=== PATIENT | female | born 1970 | race Caucasian/White ===

== ENCOUNTER → 2016-04-16 | Day surgery (SDC) | payer MEDICAID ==
[2016-04-15 10:43] VITALS: BMI 44.9
[~2016-04-16] MED LIST: LACTATED RINGERS 1,000 ML IV SCH; LIDOCAINE 1% 20 ML VIAL (10MG/ML) FOR IV START INTRADERMA PRN; LIDOCAINE 1% INJ 10MG/ML (20 ML MDV) ONE; PROPOFOL 10 MG/ML 20 ML VIAL IV ONE
[2016-04-16 09:41] VITALS: TEMP 98.1
[2016-04-16 10:02] LABS: Glucose,Whole Blood 103 mg/dL (75-99)
--- NOTE | 2016-04-16 10:08 | P.GSHP ---
History of Present Illness H&P Date: 04/16/16 Chief Complaint: GERD Patient here today for upper endoscopy. She is being worked up for sleeve gastrectomy. Upper endoscopy is advised. Patient has chronic reflux. She takes omeprazole twice a day. Past Medical History Past Medical History: Asthma, Diabetes Mellitus, Eye Disorder, GERD/Reflux, Hypertension, Thyroid Disorder Additional Past Medical History / Comment(s): glaucoma History of Any Multi-Drug Resistant Organisms: None Reported Past Surgical History: Adenoidectomy, Section, Tonsillectomy, Tubal Ligation Additional Past Surgical History / Comment(s): arthroscopic left shoulder surgery Past Anesthesia/Blood Transfusion Reactions: Postoperative Nausea & Vomiting ( PONV) Past Psychological History: Depression Smoking Status: Former smoker Past Alcohol Use History: Rare Additional Past Alcohol Use History / Comment(s): quit smoking 11 yrs ago (2004) Past Drug Use History: None Reported - Past Family History Mother Additional Family Medical History / Comment(s): Graves disease, genetic blood vessel abnormality (HHT), pt tested and is negative Father Additional Family Medical History / Comment(s): from bladder cancer in 2013, he developed arterial blood clots, hernia issues, gluccoma, Medications and Allergies Home Medications Medication Instructions Recorded Confirmed Type Albuterol Sulfate [Proair Hfa] 1 - 2 puff INHALATION Q6HR PRN 09/26/15 04/15/16 History Bisacodyl [Dulcolax] 5 mg PO DAILY PRN 09/26/15 04/15/16 History Ciclesonide [Alvesco] 6.1 gm IH BID 09/26/15 04/15/16 History Citalopram Hydrobromide [CeleXA] 20 mg PO HS 09/26/15 04/15/16 History Levothyroxine Sodium [Synthroid] 175 mcg PO HS 09/26/15 04/15/16 History Losartan [Cozaar] 50 mg PO HS 09/26/15 04/15/16 History Melatonin 5 mg PO HS PRN 09/26/15 04/15/16 History Multivitamin with Iron 1 each PO DAILY 09/26/15 04/15/16 History [Multivitamins with Iron] diphenhydrAMINE [Benadryl] 25 mg PO HS PRN 09/26/15 04/15/16 History metFORMIN HCL [Glucophage] 1,000 mg PO BID 09/26/15 04/15/16 History Latanoprost Ophth [Xalatan 0.005%] 1 drops BOTH EYES HS 04/15/16 04/15/16 History Omeprazole [PriLOSEC] 20 mg PO AC-BID 04/15/16 04/15/16 History Allergies Allergy/AdvReac Type Severity Reaction Status Date / Time No Known Allergies Allergy Verified 04/16/16 09:41 Surgical - Exam Vital Signs Temp Pulse Resp BP Pulse Ox 98.1 F 84 16 137/80 98 04/16/16 09:37 04/16/16 09:37 04/16/16 09:37 04/16/16 09:37 04/16/16 09:37 Physical exam: General: Well-developed, well-nourished HEENT: Normocephalic, sclerae nonicteric Abdomen: Nontender, nondistended Extremities: No edema Neuro: Alert and oriented Results - Labs Abnormal Lab Results - Last 24 Hours (Table) 04/16/16 Range/Units 09:59 POC Glucose (mg/dL) 103 H (75-99) mg/dL Assessment and Plan (1) GERD (gastroesophageal reflux disease) Narrative/Plan: Will Proceed with upper endoscopy at this time. Status: Acute
--- NOTE | 2016-04-16 10:23 | P.PCN ---
Date of Procedure: 04/16/16 Procedure(s) Performed: Preoperative Dx: GERD Postoperative Dx: Mild gastritis Procedure: EGD with Bx Anesthesia: Sedation Endoscopist: Dr. Barrera Specimens: Antrum Endoscopic Procedure: The patient was on the endoscopy table in the left decubitus position. The Olympus gastroscope was inserted into the oropharynx and passed under direct visualization to the region of the third portion of the duodenum. From that point the scope was slowly withdrawn inspecting all surfaces carefully. There were no neoplastic inflammatory or polypoid lesions throughout the duodenum. The pylorus was widely patent. The stomach was carefully inspected. There was mild gastritis present. A biopsy of the antrum took place to rule out H. pylori. Retroflexion revealed a normal hiatus. The esophagus was then carefully examined. There were no neoplastic inflammatory or polypoid lesions throughout the visualized esophagus. The patient was then taken to the recovery room in stable condition per anesthesia guidelines. Recommendations: Await biopsy results. Continue antiacid therapy.
[2016-04-16 10:50] VITALS: RESP 18
[2016-04-16 11:01] VITALS: BP 127/85; PULSE 80
== END ==
LOC: ORWHC2ENDO 09:08
PROVIDERS: ATTEND Surgery
DX: K21.9 Gastro-esophageal reflux disease without esophagitis (principal); K29.50 Unspecified chronic gastritis without bleeding; J45.909 Unspecified asthma, uncomplicated; E11.9 Type 2 diabetes mellitus without complications; Z79.84 Long term (current) use of oral hypoglycemic drugs; H40.9 Unspecified glaucoma; I10 Essential (primary) hypertension; E07.9 Disorder of thyroid, unspecified; Z87.891 Personal history of nicotine dependence; Z79.899 Other long term (current) drug therapy
CPT/HCPCS: 88305; 88342; 43239; J2001; J2704

== ENCOUNTER → 2016-04-21 | Outpatient (CLI) | payer MEDICAID ==
[2016-04-21 12:55] VITALS: BMI 46.8
== END | disposition home or self-care (01) ==
LOC: BARWHC3 08:57
PROVIDERS: ATTEND Surgery
DX: Z71.3 Dietary counseling and surveillance (principal); E66.01 Morbid (severe) obesity due to excess calories; Z68.42 Body mass index [BMI] 45.0-49.9, adult
CPT/HCPCS: 97804

== ENCOUNTER → 2016-05-13 | Outpatient (CLI) | payer MEDICAID ==
[2016-05-13 14:56] VITALS: BP 136/64; PULSE 82; RESP 18; TEMP 99.1; BMI 46.7
--- NOTE | 2016-05-13 15:26 | P.BASOAP ---
Subjective Principal diagnosis: Morbid obesity Patient underwent her recent upper endoscopy preoperatively. She had mild gastritis at that time. She continues to take her antiacids twice daily. She is almost completed with her supervised weight loss program. Otherwise no new complaints. Objective - Vital Signs Vital signs: Vital Signs Temp 99.1 F 05/13/16 14:52 Pulse 82 05/13/16 14:52 Resp 18 05/13/16 14:52 BP 136/64 05/13/16 14:52 Pulse Ox Intake & Output 05/12/16 05/13/16 05/13/16 18:59 06:59 18:59 Weight 125.6 kg - Exam Abdomen: Soft, nontender, nondistended Assessment/Plan (1) GERD (gastroesophageal reflux disease) Narrative/Plan: Will continue to work toward scheduling of the patient's upcoming sleeve gastrectomy. The complication notification form was reviewed with her in detail. All questions were answered. Plan: Date: 05/13/16 Initial Weight: 124.33 kg Initial BMI: 46.3 Current Weight: 125.6 kg Current BMI: 46.7 Type of Surgery: Total Volume in Band: Previous Volume: Volume Removed: Volume Added: Band Size:
== END | disposition home or self-care (01) ==
LOC: BARWHC3 13:51
PROVIDERS: ATTEND Surgery
DX: Z01.818 Encounter for other preprocedural examination (principal)
CPT/HCPCS: 99211

== ENCOUNTER → 2016-09-09 | Outpatient (CLI) | payer MEDICAID ==
--- NOTE | 2016-09-09 12:13 | P.BASOAP ---
Subjective Principal diagnosis: Morbid obesity Patient is seen today preoperatively for upcoming sleeve gastrectomy. She was scheduled initially in April but was denied and required 3 additional months of supervised weight loss. She has had no significant health changes since then. She has a history of iron deficiency. 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 Her last colonoscopy was 4 years ago. Her upper endoscopy was performed in April. She underwent an iron infusion this last week. Objective - Exam Physical exam: General: Well-developed, well-nourished HEENT: Normocephalic, sclerae nonicteric Abdomen: Nontender, nondistended Extremities: No edema Neuro: Alert and oriented Assessment/Plan (1) Morbid obesity Narrative/Plan: Will proceed with upcoming sleeve gastrectomy on 10/01. The risks and benefits were again reviewed in detail. The patient already reviewed the extensive preoperative consent with me at the time of her last visit and no additional questions were raised. Plan: Date: 09/09/16 Initial Weight: 124.33 kg Initial BMI: Current Weight: Current BMI: Type of Surgery: Vertical Sleeve Gastrectomy Total Volume in Band: Previous Volume: Volume Removed: Volume Added: Band Size:
== END | disposition home or self-care (01) ==
LOC: BARWHC3 11:17
PROVIDERS: ATTEND Surgery
DX: E66.01 Morbid (severe) obesity due to excess calories (principal)
CPT/HCPCS: 99211

== ENCOUNTER → 2016-09-24 | Outpatient (CLI) | payer MEDICAID ==
[2016-09-24 12:36] LABS: EKG EKG PERFORMED
[2016-09-24 13:17] LABS: ALT 93 U/L (9-52); AST 48 U/L (14-36); Alkaline Phosphatase 56 U/L (38-126); Anion Gap 14 mmol/L; Blood Urea Nitrogen 15 mg/dL (7-17); Calcium 10.2 mg/dL (8.4-10.2); Carbon Dioxide 26 mmol/L (22-30); Chloride 102 mmol/L (98-107); Glucose 90 mg/dL (74-99); Non-African American GFR(MDRD) >60 (>60 ml/min/1.73 sqM); Sodium 142 mmol/L (137-145); Total Bilirubin 0.6 mg/dL (0.2-1.3); Total Protein 8.1 g/dL (6.3-8.2)
[2016-09-24 13:35] LABS: Basophils % (A) 0 %; CH 29.2; CHCM 34.2; Eosinophils # (A) 0.2 k/uL (0-0.7); Eosinophils % (A) 2 %; HDW 2.42; HGB 13.9 gm/dL (11.4-16.0); Luc # (Auto) 0.14; Luc % (Auto) 1; Lymphocytes # (A) 2.3 k/uL (1.0-4.8); Lymphocytes % (A) 22 %; MCH 29.7 pg (25.0-35.0); MCHC 34.7 g/dL (31.0-37.0); MCV 85.5 fL (80.0-100.0); Mean Platelet Volume 7.5; Monocytes # (A) 0.5 k/uL (0-1.0); Monocytes % (A) 5 %; Neutrophils # (A) 7.2 k/uL (1.3-7.7); Neutrophils % (A) 70 %; RBC 4.67 m/uL (3.80-5.40); RDW 14.2 % (11.5-15.5); WBC 10.3 k/uL (3.8-10.6); WBC (Perox) 9.76
--- NOTE | 2016-09-24 14:03 | XR ---
EXAMINATION TYPE: XR Hip Complete LT DATE OF EXAM: 09/24/2016 COMPARISON: NONE HISTORY: 45 year-old female left hip pain for 6 months TECHNIQUE: 2 views FINDINGS: There is mild marginal spurring at the left hip. No acute fracture, subluxation, or dislocation. IMPRESSION: Minimal early spurring about the left hip. No acute osseous abnormality seen.
== END | disposition home or self-care (01) ==
LOC: LABPAT 12:27
PROVIDERS: ATTEND Surgery
DX: Z01.818 Encounter for other preprocedural examination (principal); M76.9 Unspecified enthesopathy, lower limb, excluding foot; Z01.810 Encounter for preprocedural cardiovascular examination
CPT/HCPCS: 73502; 80053; 85025; 93005

== ENCOUNTER 2016-10-01 08:17 | Inpatient (IN) | payer MEDICAID ==
--- NOTE | 2016-09-26 13:23 | P.GSHP ---
History of Present Illness H&P Date: 10/01/16 Chief Complaint: Morbid obesity Patient was seen last September for evaluation for sleeve gastrectomy. Patient has tried a variety of different weight loss modalities over the years without sustained weight loss. She is not interested in gastric bypass or laparoscopic banding. She suffers from asthma, GERD, and gestational diabetes. Denies any history of DVT or dysphagia. She also describes chronic fatigue. The patient works as a chemotherapy nurse. Upper endoscopy performed in April shows gastritis. - Review of Systems Comment: The patient denies any acute changes in vision or hearing, no dysphagia or odynophagia, no chest pain or shortness of breath, no dysuria or hematuria, no headache, no runny nose, no rectal bleeding or melena, no unexplained weight loss Past Medical History Past Medical History: Asthma, Diabetes Mellitus, Eye Disorder, GERD/Reflux, Hypertension, Osteoarthritis (OA), Thyroid Disorder Additional Past Medical History / Comment(s): IRON DEF ANEMIA, IRON INFUSION LAST 09/08/16. Glaucoma. History of Any Multi-Drug Resistant Organisms: None Reported Past Surgical History: Adenoidectomy, Section, Tonsillectomy, Tubal Ligation Additional Past Surgical History / Comment(s): Arthroscopic left shoulder surgery. EGD. Past Anesthesia/Blood Transfusion Reactions: Family History of Problems w/ Anesthesia, Postoperative Nausea & Vomiting (PONV) Additional Past Anesthesia/Blood Transfusion Reaction / Comment(s): MOTHER HAD PONV. Smoking Status: Former smoker - Past Family History Mother Family Medical History: Cancer Additional Family Medical History / Comment(s): Graves disease, genetic blood vessel abnormality (HHT), pt tested and is negative Father Family Medical History: Cancer, Pulmonary Embolus Additional Family Medical History / Comment(s): from bladder cancer in 2013, he developed arterial blood clots, hernia issues, gluccoma, Medications and Allergies Home Medications Medication Instructions Recorded Confirmed Type Albuterol Sulfate [Proair Hfa] 1 - 2 puff INHALATION Q6HR PRN 09/26/15 09/26/16 History Bisacodyl [Dulcolax] 5 mg PO DAILY PRN 09/26/15 09/26/16 History Ciclesonide [Alvesco] 1 puff IH BID 09/26/15 09/26/16 History Citalopram Hydrobromide [CeleXA] 20 mg PO HS 09/26/15 09/26/16 History Levothyroxine Sodium [Synthroid] 175 mcg PO HS 09/26/15 09/26/16 History Losartan [Cozaar] 50 mg PO HS 09/26/15 09/26/16 History Melatonin 5 mg PO HS PRN 09/26/15 09/26/16 History Multivitamin with Iron 1 each PO DAILY 09/26/15 09/26/16 History [Multivitamins with Iron] diphenhydrAMINE [Benadryl] 25 mg PO HS PRN 09/26/15 09/26/16 History metFORMIN HCL [Glucophage] 1,000 mg PO BID 09/26/15 09/26/16 History Latanoprost Ophth [Xalatan 0.005%] 1 drops BOTH EYES HS 04/15/16 09/26/16 History Omeprazole [PriLOSEC] 20 mg PO AC-BID 04/15/16 09/26/16 History Allergies Allergy/AdvReac Type Severity Reaction Status Date / Time No Known Allergies Allergy Verified 09/26/16 10:55 Surgical - Exam Physical exam: General: Well-developed, well-nourished HEENT: Normocephalic, sclerae nonicteric Abdomen: Nontender, nondistended Extremities: No edema Neuro: Alert and oriented Assessment and Plan (1) Morbid obesity Narrative/Plan: Will proceed with elective sleeve gastrectomy this Thursday. Risks of bleeding , infection, stenosis, leak, abscess, fistula formation, poor weight loss, chronic reflux, AK, PE, DVT, and were discussed. She understands and wishes to proceed. Status: Acute
[~2016-10-01 08:17] MED LIST changes: +DEXAMETHASONE SOD PHOSPHATE 10 MG/ML 1 ML VIAL IV ONE; +ENOXAPARIN 40 MG/0.4 ML SYRINGE SQ ONE; -LACTATED RINGERS 1,000 ML IV SCH; -LIDOCAINE 1% INJ 10MG/ML (20 ML MDV) ONE; +METHYLENE BLUE 30 MG in DEXTROSE 5% IN WATER 500 ML IRRIGATION ONE; -PROPOFOL 10 MG/ML 20 ML VIAL IV ONE; +SCOPOLAMINE 1.5MG/72HR PATCH TRANSDERM ONE; +ceFAZolin 2 GM in SODIUM CHLORIDE 0.9% 100 ML IVPB ONE
[2016-10-01] MEDS: LACTATED RINGERS 1,000 ML IV SCH (09:15)
[2016-10-01] MEDS: ONDANSETRON 4 MG/2 ML VIAL IVP ONE ×2 (09:23→12:05)
[2016-10-01 09:27] LABS: Glucose,Whole Blood 89 mg/dL (75-99)
[2016-10-01] MEDS ORDERED: NEOSTIGMINE 1 MG/ML 10 ML VIAL ONE (10:17)
[2016-10-01] MEDS ORDERED: KETOROLAC 30 MG/ML 1 ML VIAL ONE (10:17)
[2016-10-01] MEDS ORDERED: LIDOCAINE 1% INJ 10MG/ML (20 ML MDV) ONE (10:17)
[2016-10-01] MEDS ORDERED: GLYCOPYRROLATE 0.2 MG/ML 2 ML VIAL ONE (10:17)
[2016-10-01] MEDS ORDERED: SUCCINYLCHOLINE CHLORIDE 100 MG/5 ML SYR IV ONE (10:17)
[2016-10-01] MEDS ORDERED: PROPOFOL 10 MG/ML 20 ML VIAL IV ONE (10:17)
[2016-10-01] MEDS ORDERED: MIDAZOLAM 2 MG/2 ML VIAL ONE (10:17)
[2016-10-01] MEDS ORDERED: ROCURONIUM BROMIDE 10 MG/ML 10 ML VIAL IV ONE (10:17)
[2016-10-01] MEDS ORDERED: fentaNYL (PF) 50 MCG/ML 2 ML AMP ONE (10:17)
[2016-10-01] MEDS ORDERED: ESMOLOL 100 MG/10 ML VIAL ONE (10:17)
[2016-10-01] MEDS ORDERED: BUPIVACAIN-EPI 0.25%-1:200,000 30 ML VIAL SQ ONE ×2 (10:41)
[2016-10-01] MEDS ORDERED: LACTATED RINGERS 1,000 ML IV ONE (11:15)
[2016-10-01] MEDS ORDERED: ONDANSETRON 4 MG/2 ML VIAL IVP PRN (11:45)
[2016-10-01] MEDS ORDERED: NALOXONE 0.4 MG/ML 1 ML VIAL IV PRN (11:45)
[2016-10-01] MEDS ORDERED: SIMETHICONE 40 MG/0.6 ML DROPS 2,000 MG/30 ML BOTTLE PO PRN (11:45)
[2016-10-01] MEDS ORDERED: diphenhydrAMINE 50 MG/ML 1 ML VIAL IVP PRN (11:45)
--- NOTE | 2016-10-01 11:50 | P.OP ---
Date of Procedure: 10/01/16 Preoperative Diagnosis: Postoperative Diagnosis: Procedure(s) Performed: PREOPERATIVE DIAGNOSIS: Morbid obesity, asthma, GERD POSTOPERATIVE DIAGNOSIS: Same PROCEDURE: Laparoscopic sleeve gastrectomy SURGEON: Bruce EBL: Minimal ANESTHESIA: General COMPLICATIONS: None OPERATIVE PROCEDURE: Patient was placed in the operating table in the supine position. She was placed under general anesthesia at that time. The abdomen was prepped and draped in sterile fashion after the patient was placed in lithotomy. A 5 mm optical trocar was used to enter the abdominal cavity in the left upper quadrant. Insufflation took place to 15 millimeters mercury. An additional right subxiphoid 5 mm trocar was then placed under direct visualization and then removed. 2 additional 5 mm trochars were placed in the right upper quadrant and left upper quadrant under direct visualization and a 15 mm trocar in the supraumbilical location. The liver was retracted using a medium Tania liver retractor through the right subxiphoid trocar site. The hiatus was inspected. The patient had no visible hiatal hernia At that point I moved to the mid aspect of the greater curvature the stomach. The short gastric vasculature was divided using a LigaSure device proximally. I then switched and divided the short gastrics distally to a 3-4 cm from the pylorus. The dissection took place up to the left diaphragmatic crura at that point. The posterior short gastrics were likewise divided using the LigaSure device. Once the stomach was fully mobilized the blunt tipped 40-Australian bougie dilator was advanced into the stomach and advanced all the way to the prepyloric location. A black echelon 60 stapler was utilized and fired tangentially across the antrum taking care to avoid narrowing at the incisura angularis. Subsequent firings of the stapler took place. A total of 4 green echelon 60 staplers with seam guard took place proximally staying on the outer edge of our dilator. Once we reached the most proximal portion of the stomach a single firing of the gold echelon 60 stapler without seen guard took place. The oral gastric tube was reinserted. The stomach was insufflated with approximately 100 mL of methylene blue. No evidence of leak or obstruction was seen. The distal aspect of the sleeve was then reapproximated to the gastrosplenic and gastrocolic ligament using a short running 2-0 strata fix suture. This was done to prevent kinking or twisting of the sleeve. Tisseel fibrin glue was then used along the entire staple line. The stomach remnant was removed from the 15 mm trocar site without difficulty. The fascia at the 15 more site was closed using interrupted 0 Vicryl sutures with the laparoscopic suture passer and Morales Latosha technique. The insufflation was evacuated. The skin at all 5 incisions were closed using 4-0 Monocryl sutures. Steri-Strips and sterile dressings were then applied. DISPOSITION: Stable to recovery room Implants: Indications for Procedure: Operative Findings: Description of Procedure:
[2016-10-01 12:19] LABS: Glucose,Whole Blood 123 mg/dL (75-99)
[2016-10-01] MEDS ORDERED: PROMETHAZINE INJ 25 MG/ML 1 ML VIAL IVPB ONE (12:22)
[2016-10-01] MEDS: HYDROmorphone 1 MG/ML 1 ML SYRINGE IVP PRN ×5 (12:31→20:51)
[2016-10-01] MEDS: ALBUTEROL NEBULIZED 2.5 MG/3 ML INHALATION SCH ×4 (14:59→19:51)
[2016-10-01] MEDS: 0.9% NACL WITH KCL 20 MEQ/L 1,000 ML IV SCH ×2 (15:04→22:03)
[2016-10-01 15:12] VITALS: BMI 41.0
[2016-10-01 15:50] LABS: Glucose,Whole Blood 139 mg/dL (75-99)
[2016-10-01] MEDS ORDERED: ENALAPRILAT 1.25 MG/ML 1 ML VIAL IVP PRN (15:53)
--- NOTE | 2016-10-01 15:56 | P.CONS ---
History of Present Illness - Reason for Consult Consult date: 10/01/16 Medical management Requesting physician: Miah Barrera - Chief Complaint Status post sleeve gastrectomy. - History of Present Illness This is a 45-year-old female one of Dr. Hernandez with a previous medical history significant for hypertension and hypertensive cardiovascular disease, depression, diabetes mellitus type 2 with a prior history of gestational diabetes, history of morbid obesity who tried several diet and exercise regimen without any results she tried metformin 1000 mg orally twice every day without any results she ended up seeing Dr. Barrera she underwent vertical sleeve gastrectomy that was done today and we were asked to see the patient for medical management. Patient sitting up at the edge of the bed she complains of pressure in her chest because of the gas, she denies any nausea, vomiting, she had a bit of headache, she is a bit uncomfortable. Review of Systems Constitutional: Denies anorexia, Denies chronic headaches, Denies chronic pain, Denies lethargy, Denies weakness, Denies weight gain, Denies weight loss Eyes: denies blurred vision, denies bulging eye, denies decreased vision, denies diplopia Ears: deny: decreased hearing Ears, nose, mouth and throat: Denies dysphagia, Denies swelling in throat, Denies sore throat Cardiovascular: Reports chest pain, Reports high blood pressure, Denies dyspnea on exertion, Denies palpitations, Denies phlebitis, Denies rapid heart beat, Denies shortness of breath Respiratory: Denies congestion, Denies cough, Denies cough with sputum, Denies home oxygen, Denies sleep apnea, Denies snoring, Denies wheezing Gastrointestinal: Reports abdominal pain, Denies bloating, Denies BRBPR, Denies constipation, Denies heartburn, Denies melena, Denies nausea, Denies vomiting Genitourinary: Denies dysuria, Denies urgency Musculoskeletal: Denies myalgias Musculoskeletal: absent: ankle pain, ankle stiffness, ankle swelling, elbow pain , elbow stiffness, elbow swelling, foot pain, foot stiffness, foot swelling, hand pain, hand stiffness, hand swelling, hip pain, hip stiffness, hip swelling , knee pain, knee stiffness, knee swelling, shoulder pain, shoulder stiffness, shoulder swelling, wrist pain, wrist stiffness, wrist swelling Integumentary: Denies pruritus, Denies rash Neurological: Denies numbness, Denies weakness Psychiatric: Reports depression Endocrine: Denies fatigue, Denies weight change Past Medical History Past Medical History: Asthma, Diabetes Mellitus, Eye Disorder, GERD/Reflux, Hypertension, Osteoarthritis (OA), Thyroid Disorder Additional Past Medical History / Comment(s): IRON DEF ANEMIA, IRON INFUSION LAST 09/08/16. Glaucoma. History of Any Multi-Drug Resistant Organisms: None Reported Past Surgical History: Adenoidectomy, Section, Tonsillectomy, Tubal Ligation Additional Past Surgical History / Comment(s): Arthroscopic left shoulder surgery. EGD. Past Anesthesia/Blood Transfusion Reactions: Family History of Problems w/ Anesthesia, Postoperative Nausea & Vomiting (PONV) Additional Past Anesthesia/Blood Transfusion Reaction / Comm: MOTHER HAD PONV. Past Psychological History: Depression Smoking Status: Former smoker (Patient used to smoke about 1/2 pack a day for about 20 years and quit about 12 years ago.) - Past Family History Mother Family Medical History: Rheumatoid Arthritis (RA) (Mother is 68-year-old has history for major arthritis, Graves' disease, hemorrhagic hereditary telangiectasia HHT), Vascular Disorder Additional Family Medical History / Comment(s): Graves disease, genetic blood vessel abnormality (HHT), pt tested and is negative Father Family Medical History: Cancer (Father at age of 68 from cancer he also had a history of pulmonary embolism.), Pulmonary Embolus Additional Family Medical History / Comment(s): from bladder cancer in 2013, he developed arterial blood clots, hernia issues, gluccoma, Brother(s) Family Medical History: No Reported History (Patient has one brother no major medical problem) Daughter(s) Family Medical History: No Reported History (Patient has a daughter no major medical problems) Son(s) Family Medical History: No Reported History (She has a son no major medical problems) Medications and Allergies Home Medications Medication Instructions Recorded Confirmed Type Albuterol Sulfate [Proair Hfa] 1 - 2 puff INHALATION RT-Q6H PRN 09/26/15 History Bisacodyl [Dulcolax] 5 mg PO DAILY PRN 09/26/15 10/01/16 History Ciclesonide [Alvesco] 1 puff IH RT-BID 09/26/15 10/01/16 History Citalopram Hydrobromide [CeleXA] 20 mg PO HS 09/26/15 10/01/16 History Levothyroxine Sodium [Synthroid] 175 mcg PO HS 09/26/15 10/01/16 History Losartan [Cozaar] 50 mg PO HS 09/26/15 10/01/16 History Melatonin 5 mg PO HS PRN 09/26/15 10/01/16 History Multivitamin with Iron 1 tab PO DAILY 09/26/15 10/01/16 History [Multivitamins with Iron] diphenhydrAMINE [Benadryl] 25 mg PO HS PRN 09/26/15 10/01/16 History metFORMIN HCL [Glucophage] 1,000 mg PO BID 09/26/15 10/01/16 History Latanoprost Ophth [Xalatan 0.005%] 1 drops BOTH EYES HS 04/15/16 10/01/16 History Omeprazole [PriLOSEC] 20 mg PO AC-BID 04/15/16 10/01/16 History Allergies Allergy/AdvReac Type Severity Reaction Status Date / Time No Known Allergies Allergy Verified 10/01/16 09:18 Physical Exam Vitals: Vital Signs Temp Pulse Pulse Pulse Resp BP BP 10/01/16 15:38 10/01/16 15:20 113 H 132/68 10/01/16 15:05 87 131/64 10/01/16 14:50 97.8 F 89 16 128/63 10/01/16 14:30 73 16 112/57 10/01/16 14:00 77 16 112/59 10/01/16 13:45 90 16 118/56 10/01/16 13:30 74 16 112/57 10/01/16 13:15 76 16 106/58 10/01/16 13:00 81 16 113/59 10/01/16 12:51 72 16 113/57 10/01/16 12:36 73 16 115/56 10/01/16 12:21 83 16 123/60 10/01/16 12:06 91 16 128/59 10/01/16 11:50 97.4 F L 74 16 118/58 10/01/16 09:24 98.9 F 77 16 127/78 Pulse Ox 10/01/16 15:38 96 10/01/16 15:20 94 L 10/01/16 15:05 94 L 10/01/16 14:50 91 L 10/01/16 14:30 97 10/01/16 14:00 95 10/01/16 13:45 98 10/01/16 13:30 95 10/01/16 13:15 96 10/01/16 13:00 95 10/01/16 12:51 95 10/01/16 12:36 95 10/01/16 12:21 97 10/01/16 12:06 100 10/01/16 11:50 100 10/01/16 09:24 97 Intake and Output 10/01/16 10/01/16 10/01/16 06:59 14:59 22:59 Intake Total 1800 Output Total 5 Balance 1795 Intake: IV 1800 Output: Estimated Blood Loss 5 Other: Weight 115.3 kg Patient Weight 10/02/16 06:59 Weight 115.3 kg - Constitutional General appearance: mild distress, obese - EENT Eyes: anicteric sclerae, EOMI, PERRLA, no ptosis, no scleral icterus, normal appearance ENT: hearing grossly normal, NA/AT, normal oropharynx, no thrush Ears: bilateral: normal - Neck Neck: no lymphadenopathy, normal ROM, no rigidity, no stridor, no thyromegaly Carotids: bilateral: upstroke normal Thyroid: bilateral: normal size - Respiratory Respiratory: bilateral: diminished, negative: dullness, rales, rhonchi, wheezing , prolonged expiration - Cardiovascular Rhythm: regular Heart sounds: normal: S1, S2 Abnormal Heart Sounds: no systolic murmur, no diastolic murmur, no S3 Gallop, no S4 Gallop, no click - Gastrointestinal General gastrointestinal: decreased bowel sounds, soft, tenderness, no umbilical hernia, no ventral hernia - Integumentary Integumentary: normal, normal turgor - Neurologic Neurologic: CNII-XII intact - Musculoskeletal Musculoskeletal: strength equal bilaterally - Psychiatric Psychiatric: A&O x's 3, appropriate affect, intact judgment & insight Results Labs: Abnormal Lab Results - Last 24 Hours (Table) 10/01/16 Range/Units 12:01 POC Glucose (mg/dL) 123 H (75-99) mg/dL Assessment and Plan Plan: Assessment and plan: 1. Post operative day #0 status post vertical sleeve gastrectomy. Continue patient nothing per mouth patient is going for an upper GI in the morning she is to be kept on nothing per mouth, will hold off all her oral medication we'll start the patient on IV Vasotec for blood pressure control, patient will be maintained on Zofran, DVT prophylaxis with Lovenox, GI prophylaxis as well, patient was provided with incentive spirometer. 2. Hypertension and hypertensive cardiovascular disease. We will hold losartan for now start the patient on Vasotec 1.25 mg IV push every 6 hours as needed for systolic blood pressure greater than or equal to 160 mmHg. We will resume her losartan tomorrow morning after the patient upper GI. 3. History of asthma. Continue patient on albuterol 2.5 mg inhalation 4 times every day, we will resume the patient Alvesco 1 puff inhalation twice every day. 4. Hypothyroidism. We will restart Synthroid tomorrow morning after she passes her upper GI. 5. Depresion. Hold Celexa for now. 6. Glaucoma. Continue Xalatan 0.005% 1 drop in both eyes at bedtime. 7. Diabetes mellitus type 2. Continue patient on slight scale insulin. Hold metformin for now. 8. DVT prophylaxis. Continue Lovenox 40 mg subcutaneously every 12 hours. 9. GI prophylaxis. Continue PPI. 10. Thank you Dr. Barrera for the consult we will follow with you.
[2016-10-01] MEDS ORDERED: ALBUTEROL NEBULIZED 2.5 MG/3 ML INHALATION PRN (15:58)
[2016-10-01 19:35] LABS: Glucose,Whole Blood 108 mg/dL (75-99)
[2016-10-01] MEDS: BUDESONIDE 0.5 MG/2 ML NEBU INHALATION SCH (19:51)
[2016-10-01] MEDS: LATANOPROST 0.005% OPHTH DROPS 2.5 ML BTL BOTH EYES SCH (20:52)
[2016-10-01] MEDS: HYOSCYAMINE ORAL DROPS 1.875 MG/15 ML BOTTLE PO PRN (20:59)
[2016-10-02] MEDS: HYDROmorphone 1 MG/ML 1 ML SYRINGE IVP PRN ×5 (00:13→12:11)
[2016-10-02 00:20] LABS: Glucose,Whole Blood 92 mg/dL (75-99)
[2016-10-02] MEDS: INSULIN LISPRO (humaLOG) 300 UNIT/3 ML VIAL SQ SCH ×4 (01:06→18:09)
[2016-10-02] MEDS: ONDANSETRON 4 MG/2 ML VIAL IVP PRN ×4 (01:16→18:12)
[2016-10-02] MEDS: HYOSCYAMINE ORAL DROPS 1.875 MG/15 ML BOTTLE PO PRN ×2 (03:25→12:12)
[2016-10-02] MEDS: 0.9% NACL WITH KCL 20 MEQ/L 1,000 ML IV SCH (04:47)
[2016-10-02] MEDS: LACTATED RINGERS 1,000 ML IV SCH (05:44)
[2016-10-02 05:52] LABS: Glucose,Whole Blood 91 mg/dL (75-99)
[2016-10-02 07:28] LABS: ALT 101 U/L (9-52); AST 43 U/L (14-36); Alkaline Phosphatase 48 U/L (38-126); Anion Gap 11 mmol/L; Blood Urea Nitrogen 6 mg/dL (7-17); Calcium 9.3 mg/dL (8.4-10.2); Carbon Dioxide 23 mmol/L (22-30); Chloride 110 mmol/L (98-107); Glucose 96 mg/dL (74-99); Magnesium 1.9 mg/dL (1.6-2.3); Non-African American GFR(MDRD) >60 (>60 ml/min/1.73 sqM); Phosphorous 2.9 mg/dL (2.5-4.5); Sodium 144 mmol/L (137-145); Total Bilirubin 0.3 mg/dL (0.2-1.3); Total Protein 6.8 g/dL (6.3-8.2)
[2016-10-02 07:43] LABS: Basophils % (A) 0 %; CH 29.4; CHCM 32.6; Eosinophils % (A) 0 %; HCT 35.9 % (34.0-46.0); HDW 2.38; HGB 11.9 gm/dL (11.4-16.0); Luc # (Auto) 0.08; Luc % (Auto) 1; Lymphocytes # (A) 1.8 k/uL (1.0-4.8); Lymphocytes % (A) 18 %; MCH 29.9 pg (25.0-35.0); Mean Platelet Volume 7.7; Monocytes # (A) 0.4 k/uL (0-1.0); Monocytes % (A) 4 %; Neutrophils # (A) 7.6 k/uL (1.3-7.7); Neutrophils % (A) 77 %; RBC 3.97 m/uL (3.80-5.40); WBC 9.9 k/uL (3.8-10.6); WBC (Perox) 9.74
[2016-10-02 07:45] LABS: MCV 90.5 fL (80.0-100.0)
[2016-10-02] MEDS: BUDESONIDE 0.5 MG/2 ML NEBU INHALATION SCH ×2 (08:29→20:50)
[2016-10-02] MEDS: ALBUTEROL NEBULIZED 2.5 MG/3 ML INHALATION SCH ×4 (08:29→20:50)
[2016-10-02] MEDS: ESOMEPRAZOLE 20 MG in SODIUM CHLORIDE 0.9% 50 ML IVPB SCH (08:46)
[2016-10-02] MEDS: ENOXAPARIN 40 MG/0.4 ML SYRINGE SQ SCH ×2 (08:46→20:47)
--- NOTE | 2016-10-02 09:25 | FL ---
EXAMINATION TYPE: FL UGI DATE OF EXAM: 10/02/2016 COMPARISON: NONE HISTORY: Gastric sleeve TECHNIQUE: A single contrast UGI study is performed. FINDINGS: Contrast passes from the distal esophagus through the gastric sleeve with mild hesitancy. N o extravasation of contrast is evident. No free air is noted during this examination. Overhead radiographs were obtained which are unremarkable. IMPRESSIONS: 1. Normal post gastric sleeve without obstruction or significant hesitancy. No extravasation.
[2016-10-02 10:14] LABS: Glucose,Whole Blood 92 mg/dL (75-99)
[2016-10-02 12:04] LABS: Hemoglobin A1C 5.7 % (4.2-6.1)
--- NOTE | 2016-10-02 12:31 | P.PN ---
Subjective This is a 45-year-old female one of Dr. Hernandez with a previous medical history significant for hypertension and hypertensive cardiovascular disease, depression, diabetes mellitus type 2 with a prior history of gestational diabetes, history of morbid obesity who tried several diet and exercise regimen without any results she tried metformin 1000 mg orally twice every day without any results she ended up seeing Dr. Barrera she underwent vertical sleeve gastrectomy that was done today and we were asked to see the patient for medical management. Patient sitting up at the edge of the bed she complains of pressure in her chest because of the gas, she denies any nausea, vomiting, she had a bit of headache, she is a bit uncomfortable. 10/02: Patient is currently on ice chips. Esophagram is normal. Blood pressure is under control. Patient is complaining of pain and gas pain in epigastric area that comes and goes. She has been ambulating without difficulty. She denies passing any gas. Objective - Vital Signs Vital signs: Vital Signs Temp 98.7 F 10/02/16 01:38 Pulse 84 10/02/16 01:38 Resp 16 10/02/16 04:00 BP 137/62 10/02/16 01:38 Pulse Ox 97 10/02/16 01:38 Intake & Output 10/01/16 10/02/16 10/02/16 18:59 06:59 18:59 Intake Total 1800 1390 Output Total 5 Balance 1795 1390 Weight 115.3 kg Intake: IV 1800 800 0.9% NaCl with KCl 20 Meq 800 /l 1,000 ml @ 100 mls/hr IV .BY DURATION [facility] Rx#: [id number] Oral 590 Output: Estimated Blood Loss 5 Other: Voiding Method Toilet Toilet # Voids 2 - Exam General appearance: mild distress, obese - EENT Eyes: anicteric sclerae, EOMI, PERRLA, no ptosis, no scleral icterus, normal appearance ENT: hearing grossly normal, NA/AT, normal oropharynx, no thrush Ears: bilateral: normal - Neck Neck: no lymphadenopathy, normal ROM, no rigidity, no stridor, no thyromegaly Carotids: bilateral: upstroke normal Thyroid: bilateral: normal size - Respiratory Respiratory: bilateral: diminished, negative: dullness, rales, rhonchi, wheezing , prolonged expiration - Cardiovascular Rhythm: regular Heart sounds: normal: S1, S2 Abnormal Heart Sounds: no systolic murmur, no diastolic murmur, no S3 Gallop, no S4 Gallop, no click - Gastrointestinal General gastrointestinal: decreased bowel sounds, soft, tenderness, no umbilical hernia, no ventral hernia - Integumentary Integumentary: normal, normal turgor - Neurologic Neurologic: CNII-XII intact - Musculoskeletal Musculoskeletal: strength equal bilaterally - Psychiatric Psychiatric: A&O x's 3, appropriate affect, intact judgment & insight - Labs CBC & Chem 7: 10/02/16 06:46 10/02/16 06:46 Labs: Abnormal Lab Results - Last 24 Hours (Table) 10/01/16 10/01/16 10/01/16 Range/Units 12:01 15:43 19:33 Chloride (98-107) mmol/L BUN (7-17) mg/dL POC Glucose (mg/dL) 123 H 139 H 108 H (75-99) mg/dL AST (14-36) U/L ALT (9-52) U/L 10/02/16 Range/Units 06:46 Chloride 110 H (98-107) mmol/L BUN 6 L (7-17) mg/dL POC Glucose (mg/dL) (75-99) mg/dL AST 43 H (14-36) U/L ALT 101 H (9-52) U/L Assessment and Plan Plan: 1. Post operative day #0 status post vertical sleeve gastrectomy. Continue patient nothing per mouth patient is going for an upper GI in the morning she is to be kept on nothing per mouth, will hold off all her oral medication we'll start the patient on IV Vasotec for blood pressure control, patient will be maintained on Zofran, DVT prophylaxis with Lovenox, GI prophylaxis as well, patient was provided with incentive spirometer. 2. Hypertension and hypertensive cardiovascular disease. We will hold losartan for now start the patient on Vasotec 1.25 mg IV push every 6 hours as needed for systolic blood pressure greater than or equal to 160 mmHg. We will resume her losartan tomorrow morning after the patient upper GI. 3. History of asthma. Continue patient on albuterol 2.5 mg inhalation 4 times every day, we will resume the patient Alvesco 1 puff inhalation twice every day. 4. Hypothyroidism. We will restart Synthroid tomorrow morning after she passes her upper GI. 5. Depresion. Hold Celexa for now. 6. Glaucoma. Continue Xalatan 0.005% 1 drop in both eyes at bedtime. 7. Diabetes mellitus type 2. Continue patient on slight scale insulin. Hold metformin for now. 8. DVT prophylaxis. Continue Lovenox 40 mg subcutaneously every 12 hours. 9. GI prophylaxis. Continue PPI. Discharge plan: Return home Impression and plan of care have been directed as dictated by the signing physician. Genevieve Gill nurse practitioner acting as scribe for signing physician.
--- NOTE | 2016-10-02 13:07 | P.PN ---
Subjective Principal diagnosis: Morbid obesity Patient complaining of mild upper abdominal discomfort. Just now starting liquid diet. Upper GI shows no evidence of leak or obstruction. Labs appear normal. She is ambulating. Vital signs have been stable. Objective - Vital Signs Vital signs: Vital Signs Temp 98.7 F 10/02/16 01:38 Pulse 84 10/02/16 01:38 Resp 16 10/02/16 04:00 BP 137/62 10/02/16 01:38 Pulse Ox 97 10/02/16 12:08 Intake & Output 10/01/16 10/02/16 10/02/16 18:59 06:59 18:59 Intake Total 1800 1390 Output Total 5 Balance 1795 1390 Weight 115.3 kg Intake: IV 1800 800 0.9% NaCl with KCl 20 Meq 800 /l 1,000 ml @ 100 mls/hr IV .BY DURATION [facility] Rx#: [id number] Oral 590 Output: Estimated Blood Loss 5 Other: Voiding Method Toilet Toilet Toilet # Voids 2 - Exam abdomen: Soft, nondistended, mild epigastric tenderness, incisions clean and dry - Labs CBC & Chem 7: 10/02/16 06:46 10/02/16 06:46 Labs: Abnormal Lab Results - Last 24 Hours (Table) 10/01/16 10/01/16 10/02/16 Range/Units 15:43 19:33 06:46 Chloride 110 H (98-107) mmol/L BUN 6 L (7-17) mg/dL POC Glucose (mg/dL) 139 H 108 H (75-99) mg/dL AST 43 H (14-36) U/L ALT 101 H (9-52) U/L Assessment and Plan (1) Morbid obesity Narrative/Plan: Begin bariatric liquid diet. Increase activity levels. Anticipate discharge tomorrow or Thursday. Status: Acute
[2016-10-02] MEDS: 1: MVI, ADULT NO.4 WITH VIT K 10 ML, THIAMINE 100 MG, FOLIC ACID 1 MG, POTASSIUM CHLORID IV SCH ×12 (13:30→22:10)
[2016-10-02] MEDS ORDERED: SODIUM CHLORIDE 0.9% 1,000 ML BAG ONE (13:30)
[2016-10-02] MEDS: HYDROcodone/APAP 5-325MG 1 EACH TAB PO PRN (15:48)
[2016-10-02 16:59] LABS: Glucose,Whole Blood 91 mg/dL (75-99)
[2016-10-02] MEDS: KETOROLAC 30 MG/ML 1 ML VIAL IVP SCH ×2 (18:12→23:13)
[2016-10-02] MEDS: LATANOPROST 0.005% OPHTH DROPS 2.5 ML BTL BOTH EYES SCH (20:47)
[2016-10-03 00:09] LABS: Glucose,Whole Blood 78 mg/dL (75-99)
[2016-10-03] MEDS: INSULIN LISPRO (humaLOG) 300 UNIT/3 ML VIAL SQ SCH ×4 (00:13→18:06)
[2016-10-03] MEDS: LACTATED RINGERS 1,000 ML IV SCH (00:14)
[2016-10-03] MEDS: HYDROcodone/APAP 5-325MG 1 EACH TAB PO PRN ×5 (04:39→23:15)
[2016-10-03] MEDS: KETOROLAC 30 MG/ML 1 ML VIAL IVP SCH ×4 (05:21→23:07)
[2016-10-03] MEDS: 1: MVI, ADULT NO.4 WITH VIT K 10 ML, THIAMINE 100 MG, FOLIC ACID 1 MG, POTASSIUM CHLORID IV SCH ×18 (05:22→20:42)
[2016-10-03] MEDS ORDERED: SODIUM CHLORIDE 0.9% 1,000 ML BAG ONE (05:22)
[2016-10-03 06:10] LABS: Glucose,Whole Blood 83 mg/dL (75-99)
[2016-10-03] MEDS: HYOSCYAMINE ORAL DROPS 1.875 MG/15 ML BOTTLE PO PRN ×4 (07:14→23:09)
[2016-10-03] MEDS ORDERED: BISACODYL 5 MG TABLET.DR PO PRN (08:00)
[2016-10-03] MEDS: ALBUTEROL NEBULIZED 2.5 MG/3 ML INHALATION SCH ×4 (08:08→22:04)
[2016-10-03] MEDS: BUDESONIDE 0.5 MG/2 ML NEBU INHALATION SCH ×2 (08:10→22:04)
[2016-10-03] MEDS: ESOMEPRAZOLE 20 MG in SODIUM CHLORIDE 0.9% 50 ML IVPB SCH (08:23)
[2016-10-03] MEDS: ENOXAPARIN 40 MG/0.4 ML SYRINGE SQ SCH ×2 (08:29→20:44)
[2016-10-03 11:30] LABS: Glucose,Whole Blood 79 mg/dL (75-99)
--- NOTE | 2016-10-03 12:52 | P.PN ---
Subjective This is a 45-year-old female one of Dr. Hernandez with a previous medical history significant for hypertension and hypertensive cardiovascular disease, depression, diabetes mellitus type 2 with a prior history of gestational diabetes, history of morbid obesity who tried several diet and exercise regimen without any results she tried metformin 1000 mg orally twice every day without any results she ended up seeing Dr. Barrera she underwent vertical sleeve gastrectomy that was done today and we were asked to see the patient for medical management. Patient sitting up at the edge of the bed she complains of pressure in her chest because of the gas, she denies any nausea, vomiting, she had a bit of headache, she is a bit uncomfortable. 10/02: Patient is currently on ice chips. Esophagram is normal. Blood pressure is under control. Patient is complaining of pain and gas pain in epigastric area that comes and goes. She has been ambulating without difficulty. She denies passing any gas. 10/03: Patient states she is passing gas. And has a bowel movement this morning. Pain appears to be controlled. Diet is being advanced. Medication reconciliation has been complaining a she goes home today. Metformin was discontinued. Objective - Vital Signs Vital signs: Vital Signs Temp 98.0 F 10/03/16 07:00 Pulse 74 10/03/16 07:00 Resp 18 10/03/16 07:00 BP 124/74 10/03/16 07:00 Pulse Ox 100 10/03/16 07:00 Intake & Output 10/02/16 10/03/16 10/03/16 18:59 06:59 18:59 Intake Total 970 1021.2 Output Total 20 Balance 950 1021.2 Weight 115.3 kg Intake: IV 100 0.9% NaCl with KCl 20 Meq 100 /l 1,000 ml @ 100 mls/hr IV .BY DURATION [facility] Rx#: [id number] Intake, IV Titration 750 1021.2 Amount 0.9% NaCl with KCl 20 Meq 700 /l 1,000 ml @ 150 mls/hr IV .[id number] [facility] Rx#: [id number] Esomeprazole 20 mg In 50 Sodium Chloride 0.9% 50 ml @ 100 mls/hr IVPB DAILY [facility] Rx#:[id number] Mvi, Adult No.4 with Vit 1021.2 K 10 ml Thiamine 100 mg Folic Acid 1 mg Potassium Chloride 20 meq In Sodium Chloride 0.9% 1, 000 ml @ 100 mls/hr IV . BY DURATION [facility] Rx#: [id number] Oral 120 Output: Emesis 20 Other: Voiding Method Toilet Toilet # Voids 2 1 1 - Exam General appearance: mild distress, obese - EENT Eyes: anicteric sclerae, EOMI, PERRLA, no ptosis, no scleral icterus, normal appearance ENT: hearing grossly normal, NA/AT, normal oropharynx, no thrush Ears: bilateral: normal - Neck Neck: no lymphadenopathy, normal ROM, no rigidity, no stridor, no thyromegaly Carotids: bilateral: upstroke normal Thyroid: bilateral: normal size - Respiratory Respiratory: bilateral: diminished, negative: dullness, rales, rhonchi, wheezing , prolonged expiration - Cardiovascular Rhythm: regular Heart sounds: normal: S1, S2 Abnormal Heart Sounds: no systolic murmur, no diastolic murmur, no S3 Gallop, no S4 Gallop, no click - Gastrointestinal General gastrointestinal: decreased bowel sounds, soft, tenderness, no umbilical hernia, no ventral hernia - Integumentary Integumentary: normal, normal turgor - Neurologic Neurologic: CNII-XII intact - Musculoskeletal Musculoskeletal: strength equal bilaterally - Psychiatric Psychiatric: A&O x's 3, appropriate affect, intact judgment & insight - Labs CBC & Chem 7: 10/02/16 06:46 10/02/16 06:46 Assessment and Plan Plan: 1. Post operative day #0 status post vertical sleeve gastrectomy. Continue patient nothing per mouth patient is going for an upper GI in the morning she is to be kept on nothing per mouth, will hold off all her oral medication we'll start the patient on IV Vasotec for blood pressure control, patient will be maintained on Zofran, DVT prophylaxis with Lovenox, GI prophylaxis as well, patient was provided with incentive spirometer. 2. Hypertension and hypertensive cardiovascular disease. We will hold losartan for now start the patient on Vasotec 1.25 mg IV push every 6 hours as needed for systolic blood pressure greater than or equal to 160 mmHg. We will resume her losartan tomorrow morning after the patient upper GI. 3. History of asthma. Continue patient on albuterol 2.5 mg inhalation 4 times every day, we will resume the patient Alvesco 1 puff inhalation twice every day. 4. Hypothyroidism. We will restart Synthroid tomorrow morning after she passes her upper GI. 5. Depresion. Hold Celexa for now. 6. Glaucoma. Continue Xalatan 0.005% 1 drop in both eyes at bedtime. 7. Diabetes mellitus type 2. Continue patient on slight scale insulin. Hold metformin for now. 8. DVT prophylaxis. Continue Lovenox 40 mg subcutaneously every 12 hours. 9. GI prophylaxis. Continue PPI. Discharge plan: Return home Impression and plan of care have been directed as dictated by the signing physician. Genevieve Gill nurse practitioner acting as scribe for signing physician.
[2016-10-03 17:42] LABS: Glucose,Whole Blood 69 mg/dL (75-99)
[2016-10-03 18:06] LABS: Glucose,Whole Blood 68 mg/dL (75-99)
--- NOTE | 2016-10-03 19:22 | P.PN ---
Progress Note - Text The patient has complaints of some midepigastric pain. She also describes some esophageal spasms. On exam her vital signs are stable. Her abdomen soft. Status post sleeve yesterday. Patient will be hopefully discharge home in a.m.
[2016-10-03] MEDS: LATANOPROST 0.005% OPHTH DROPS 2.5 ML BTL BOTH EYES SCH (20:44)
[2016-10-03 23:28] LABS: Glucose,Whole Blood 70 mg/dL (75-99)
[2016-10-03 23:44] LABS: Glucose,Whole Blood 82 mg/dL (75-99)
[2016-10-04] MEDS: INSULIN LISPRO (humaLOG) 300 UNIT/3 ML VIAL SQ SCH ×3 (00:57→13:24)
[2016-10-04] MEDS: LACTATED RINGERS 1,000 ML IV SCH (00:59)
[2016-10-04] MEDS: HYOSCYAMINE ORAL DROPS 1.875 MG/15 ML BOTTLE PO PRN ×2 (04:35→09:29)
[2016-10-04] MEDS: 1: MVI, ADULT NO.4 WITH VIT K 10 ML, THIAMINE 100 MG, FOLIC ACID 1 MG, POTASSIUM CHLORID IV SCH ×6 (04:37)
[2016-10-04] MEDS ORDERED: SODIUM CHLORIDE 0.9% 1,000 ML BAG ONE (04:37)
[2016-10-04] MEDS: KETOROLAC 30 MG/ML 1 ML VIAL IVP SCH ×2 (05:16→13:24)
[2016-10-04 05:58] LABS: Glucose,Whole Blood 79 mg/dL (75-99)
[2016-10-04 07:53] VITALS: BP 136/77; PULSE 58; RESP 17; TEMP 98.3
[2016-10-04] MEDS: HYDROcodone/APAP 5-325MG 1 EACH TAB PO PRN ×2 (08:33→13:40)
[2016-10-04] MEDS: ALBUTEROL NEBULIZED 2.5 MG/3 ML INHALATION SCH ×3 (09:07→15:24)
[2016-10-04] MEDS: BUDESONIDE 0.5 MG/2 ML NEBU INHALATION SCH (09:07)
[2016-10-04] MEDS: ESOMEPRAZOLE 20 MG in SODIUM CHLORIDE 0.9% 50 ML IVPB SCH (09:26)
[2016-10-04] MEDS: ENOXAPARIN 40 MG/0.4 ML SYRINGE SQ SCH (09:27)
[2016-10-04 11:50] LABS: Glucose,Whole Blood 79 mg/dL (75-99)
--- NOTE | 2016-10-04 13:18 | P.DS ---
Providers Date of admission: 10/01/16 08:56 Expected date of discharge: 10/04/16 Attending physician: Miah Barrera Consults: 10/01/16 11:45 Consult Physician Routine Consulting Provider: Jero Hernandez Reason/Comments: Medical management Do you want consulting provider notified?: Yes Primary care physician: Jero Hernandez [facility] Course: This a 45 row female who underwent sleeve gastrectomy. Patient did well postoperative. Please see hospital chart for details. Procedures: Laparoscopic sleeve gastrectomy Patient Condition at Discharge: Good Plan - Discharge Summary New Discharge Prescriptions: New Hydrocodone/Acetaminophen [Story 5-325] 1 - 2 each PO Q4HR PRN #30 tab PRN Reason: pain Hyoscyamine Oral Drops [Levsin Drops] 0.125 mg PO Q6HR PRN #250 ml PRN Reason: Esophageal Spasm Continue Ciclesonide [Alvesco] 1 puff IH RT-BID Albuterol Sulfate [Proair Hfa] 1 - 2 puff INHALATION RT-Q6H PRN PRN Reason: Shortness Of Breath diphenhydrAMINE [Benadryl] 25 mg PO HS PRN PRN Reason: Nasal Congestion Losartan [Cozaar] 50 mg PO HS Levothyroxine Sodium [Synthroid] 175 mcg PO HS Melatonin 5 mg PO HS PRN PRN Reason: Insomnia Bisacodyl [Dulcolax] 5 mg PO DAILY PRN PRN Reason: Constipation Multivitamin with Iron [Multivitamins with Iron] 1 tab PO DAILY Citalopram Hydrobromide [CeleXA] 20 mg PO HS Latanoprost Ophth [Xalatan 0.005%] 1 drops BOTH EYES HS Omeprazole [PriLOSEC] 20 mg PO AC-BID Discontinued metFORMIN HCL [Glucophage] 1,000 mg PO BID Discharge Medication List Albuterol Sulfate [Proair Hfa] 1 - 2 puff INHALATION RT-Q6H PRN 09/26/15 [ History] Bisacodyl [Dulcolax] 5 mg PO DAILY PRN 09/26/15 [History] Ciclesonide [Alvesco] 1 puff IH RT-BID 09/26/15 [History] Citalopram Hydrobromide [CeleXA] 20 mg PO HS 09/26/15 [History] Levothyroxine Sodium [Synthroid] 175 mcg PO HS 09/26/15 [History] Losartan [Cozaar] 50 mg PO HS 09/26/15 [History] Melatonin 5 mg PO HS PRN 09/26/15 [History] Multivitamin with Iron [Multivitamins with Iron] 1 tab PO DAILY 09/26/15 [ History] diphenhydrAMINE [Benadryl] 25 mg PO HS PRN 09/26/15 [History] Latanoprost Ophth [Xalatan 0.005%] 1 drops BOTH EYES HS 04/15/16 [History] Omeprazole [PriLOSEC] 20 mg PO AC-BID 04/15/16 [History] Hydrocodone/Acetaminophen [Story 5-325] 1 - 2 each PO Q4HR PRN #30 tab 10/01/16 [Rx] Hyoscyamine Oral Drops [Levsin Drops] 0.125 mg PO Q6HR PRN #250 ml 10/04/16 [Rx] Follow up Appointment(s)/Referral(s): Miah Barrera MD [Medical Doctor] - 1 Week Jero Hernandez MD [Primary Care Provider] - 1 Week [facility] [NON-STAFF] - 1 Week Discharge Disposition: HOME SELF-CARE
--- NOTE | 2016-10-04 14:59 | P.PN ---
Subjective This is a 45-year-old female one of Dr. Hernandez with a previous medical history significant for hypertension and hypertensive cardiovascular disease, depression, diabetes mellitus type 2 with a prior history of gestational diabetes, history of morbid obesity who tried several diet and exercise regimen without any results she tried metformin 1000 mg orally twice every day without any results she ended up seeing Dr. Barrera she underwent vertical sleeve gastrectomy that was done today and we were asked to see the patient for medical management. Patient sitting up at the edge of the bed she complains of pressure in her chest because of the gas, she denies any nausea, vomiting, she had a bit of headache, she is a bit uncomfortable. 10/02: Patient is currently on ice chips. Esophagram is normal. Blood pressure is under control. Patient is complaining of pain and gas pain in epigastric area that comes and goes. She has been ambulating without difficulty. She denies passing any gas. 10/03: Patient states she is passing gas. And has a bowel movement this morning. Pain appears to be controlled. Diet is being advanced. Medication reconciliation has been complaining a she goes home today. Metformin was discontinued. 10/04: Patient's doing well, occasional esophageal spasm noted, left seen would be continued post discharge, she is anticipated to be discharged later today, oral diet has improved, patient has a normal esophagram blood sugars are normal without metformin, Objective - Vital Signs Vital signs: Vital Signs Temp 98.3 F 10/04/16 07:00 Pulse 58 L 10/04/16 07:00 Resp 17 10/04/16 07:00 BP 136/77 10/04/16 07:00 Pulse Ox 99 10/04/16 07:00 Intake & Output 10/03/16 10/04/16 10/04/16 18:59 06:59 18:59 Intake Total 2621.2 600 Balance 2621.2 600 Intake: Intake, IV Titration 2621.2 Amount 0.9% NaCl with KCl 20 Meq 1600 /l 1,000 ml @ 100 mls/hr IV .BY DURATION [facility] Rx#: [id number] Mvi, Adult No.4 with Vit 1021.2 K 10 ml Thiamine 100 mg Folic Acid 1 mg Potassium Chloride 20 meq In Sodium Chloride 0.9% 1, 000 ml @ 100 mls/hr IV . BY DURATION [facility] Rx#: [id number] Oral 600 Other: Voiding Method Toilet # Voids 1 1 2 - Constitutional General appearance: Present: cooperative, no acute distress, obese - EENT Eyes: Present: anicteric sclerae, EOMI, PERRLA, dentition normal, normal appearance ENT: Present: hard of hearing, NA/AT, normal oropharynx - Neck Neck: Present: normal ROM - Respiratory Respiratory: bilateral: CTA, negative: dullness, rales, rhonchi, wheezing - Cardiovascular Rhythm: regular Heart sounds: normal: S1, S2 Abnormal Heart Sounds: Absent: systolic murmur, diastolic murmur, rub, S3 Gallop , S4 Gallop, click, other - Gastrointestinal General gastrointestinal: Present: normal bowel sounds, soft - Integumentary Integumentary: Present: normal, normal turgor - Neurologic Neurologic: Present: CNII-XII intact, focal deficits - Labs CBC & Chem 7: 10/02/16 06:46 10/02/16 06:46 Labs: Abnormal Lab Results - Last 24 Hours (Table) 10/03/16 10/03/16 10/03/16 Range/Units 17:40 18:04 23:16 POC Glucose (mg/dL) 69 L 68 L 70 L (75-99) mg/dL Assessment and Plan Plan: 1. Post operative day #2 status post vertical sleeve gastrectomy. Continue patient nothing per mouth patient is going for an upper GI for program is normal , she is to continue on bariatric liquid diet, patient will be maintained on Zofran, DVT prophylaxis with Lovenox, GI prophylaxis as well, patient was provided with incentive spirometer. And BE continued post discharge for surgical spasm 2. Hypertension and hypertensive cardiovascular disease. We will hold losartan for now start the patient on Vasotec 1.25 mg IV push every 6 hours as needed for systolic blood pressure greater than or equal to 160 mmHg. We will resume her losartan tomorrow morning after the patient upper GI. 3. History of asthma. Continue patient on albuterol 2.5 mg inhalation 4 times every day, we will resume the patient Alvesco 1 puff inhalation twice every day. 4. Hypothyroidism. We will restart Synthroid tomorrow morning after she passes her upper GI. I. Diabetes mellitus type 2 blood sugars are normal during this postoperative care, metformin is discontinued post discharge 5. Depresion. Hold Celexa for now. 6. Glaucoma. Continue Xalatan 0.005% 1 drop in both eyes at bedtime. 7. Diabetes mellitus type 2. Continue patient on slight scale insulin. Hold metformin for now. 8. DVT prophylaxis. Continue Lovenox 40 mg subcutaneously every 12 hours. 9. GI prophylaxis. Continue PPI. Discharge plan: Return home
== END 2016-10-04 15:15 | disposition home or self-care (01) | DRG 621 ==
LOC: 2ORWHC 08:56 → 3SUR 14:25
PROVIDERS: ADMIT Surgery; ATTEND Surgery
PROC: 0DB64Z3 Excision of Stomach, Percutaneous Endoscopic Approach, Vertical (ICD-10-PCS; principal; 2016-10-01 10:15)
DX: E66.01 Morbid (severe) obesity due to excess calories (principal); I11.9 Hypertensive heart disease without heart failure; E03.9 Hypothyroidism, unspecified; H40.9 Unspecified glaucoma; J45.909 Unspecified asthma, uncomplicated; K21.9 Gastro-esophageal reflux disease without esophagitis; K22.4 Dyskinesia of esophagus; Z79.899 Other long term (current) drug therapy; Z82.49 Family history of ischemic heart disease and other diseases of the circulatory system; Z87.891 Personal history of nicotine dependence
CPT/HCPCS: 74240; 80053; 81025; 83036; 83735; 84100; 85025; 88307; 94640; 94760

== ENCOUNTER → 2016-10-07 | Outpatient (CLI) | payer MEDICAID ==
[2016-10-07 14:01] LABS: Glucose,Whole Blood 78 mg/dL (75-99)
[2016-10-07 14:20] VITALS: BMI 42.8
[2016-10-07 14:22] VITALS: BP 139/59; PULSE 75; TEMP 98.8
--- NOTE | 2016-10-07 14:58 | P.BASOAP ---
Subjective Principal diagnosis: Morbid obesity Patient is less than 1 week post sleeve gastrectomy. She is having some occasional esophageal spasms but they have been decreasing over the last few days. Appropriate weight loss noted. No GERD symptoms. Only mild nausea but no vomiting. She is tolerating her liquids. She believes she is taking in about 50-60 ounces of liquids daily. She is approaching 60 g of protein daily. She has been somewhat fatigued. Her blood sugar was checked and was 78 today. She was on metformin preoperatively. Vital signs were stable. Objective - Vital Signs Vital signs: Vital Signs Temp 98.8 F 10/07/16 13:44 Pulse 75 10/07/16 13:44 Resp BP 139/59 10/07/16 13:44 Pulse Ox Intake & Output 10/06/16 10/07/16 10/07/16 18:59 06:59 18:59 Weight 115.031 kg - Exam Abdomen: Soft, nondistended, nontender, incisions clean and dry Assessment/Plan (1) Morbid obesity Narrative/Plan: Patient to see dietitian today. Follow-up in the office 1-2 weeks. Continue dietary and exercise regimen. Continue antiacid therapy for now. Plan: Date: 10/07/16 Initial Weight: 124.33 kg Initial BMI: 46.3 Current Weight: 115.031 kg Current BMI: 42.8 Type of Surgery: Total Volume in Band: Previous Volume: Volume Removed: Volume Added: Band Size:
== END | disposition home or self-care (01) ==
LOC: BARWHC3 09:50
PROVIDERS: ATTEND Surgery
DX: E66.01 Morbid (severe) obesity due to excess calories (principal); Z68.41 Body mass index [BMI] 40.0-44.9, adult
CPT/HCPCS: 97803; 99211

== ENCOUNTER → 2016-10-21 | Outpatient (CLI) | payer MEDICAID ==
--- NOTE | 2016-10-21 16:15 | P.BASOAP ---
Subjective Principal diagnosis: Morbid obesity Patient is 3 weeks post sleeve gastrectomy. She has had good weight loss. Excellent protein and liquid intake. Spasms seem to be improving. She does describe heartburn. She is especially experiencing heartburn when she is forgetting her Prilosec. She does return to work yesterday. Some fatigue. She describes a pinching at her umbilicus when bending over. Objective - Exam Abdomen: Soft, nontender, nondistended, incision clean and dry without hernia Assessment/Plan (1) Morbid obesity Narrative/Plan: We'll check one month labs next week. Follow-up in the office 1 month. Continue antiacid therapy for now. Plan: Date: Initial Weight: 124.33 kg Initial BMI: Current Weight: Current BMI: Type of Surgery: Total Volume in Band: Previous Volume: Volume Removed: Volume Added: Band Size:
[2016-10-21 16:19] VITALS: BP 124/58; PULSE 84; TEMP 97.8; BMI 41.1
== END | disposition home or self-care (01) ==
LOC: BARWHC3 15:01
PROVIDERS: ATTEND Surgery
DX: E66.01 Morbid (severe) obesity due to excess calories (principal)
CPT/HCPCS: 99211

== ENCOUNTER → 2017-04-07 | Outpatient (CLI) | payer MEDICAID ==
[2017-04-07 15:05] VITALS: BP 126/77; PULSE 86; RESP 16; TEMP 98.1; BMI 35.3
--- NOTE | 2017-04-07 16:15 | P.BASOAP ---
Subjective Progress Note Date: 04/07/17 Principal diagnosis: Morbid obesity Patient doing well today. Weight loss has slowed down. Only 0.5 pounds since last visit. Remains on antiacids. 1 episode of vomiting since last visit. She is due for 6 month labs at this time. Her exercise level has decreased slightly. She is going to the gym 1 time per week currently Objective - Vital Signs Vital signs: Vital Signs Temp 98.1 F 04/07/17 15:02 Pulse 86 04/07/17 15:02 Resp 16 04/07/17 15:02 BP 126/77 04/07/17 15:02 Pulse Ox Intake & Output 04/06/17 04/07/17 04/07/17 18:59 06:59 18:59 Weight 94.801 kg - Exam Abdomen: Soft, nontender, nondistended Assessment/Plan (1) Morbid obesity Narrative/Plan: Will increase exercise level at this time. Check 6 month labs. Continue dietary regimen. Follow-up 6 weeks. Plan: Date: 04/07/17 Initial Weight: 124.33 kg Initial BMI: 46.3 Current Weight: 94.801 kg Current BMI: 35.3 Type of Surgery: Total Volume in Band: Previous Volume: Volume Removed: Volume Added: Band Size:
== END | disposition home or self-care (01) ==
LOC: BARWHC3 14:53
PROVIDERS: ATTEND Surgery
DX: Z48.815 Encounter for surgical aftercare following surgery on the digestive system (principal); E66.01 Morbid (severe) obesity due to excess calories; Z68.35 Body mass index [BMI] 35.0-35.9, adult; Z71.3 Dietary counseling and surveillance
CPT/HCPCS: 97803; 99211

== ENCOUNTER → 2017-05-26 | Outpatient (CLI) | payer MEDICAID ==
[2017-05-26 16:35] VITALS: BP 114/61; PULSE 73; TEMP 98.4; BMI 35.7
--- NOTE | 2017-05-26 17:48 | P.BASOAP ---
Subjective Progress Note Date: 05/26/17 Principal diagnosis: Morbid obesity Patient without complaints. Weight has stayed about the same. She has been exercising more lately with weights. Good protein intake. She recently stopped her vitamin D but when her labs were checked recently her vitamin D was low at 16.9. Objective - Vital Signs Vital signs: Vital Signs Temp 98.4 F 05/26/17 16:31 Pulse 73 05/26/17 16:31 Resp BP 114/61 05/26/17 16:31 Pulse Ox Intake & Output 05/25/17 05/26/17 05/26/17 18:59 06:59 18:59 Weight 95.3 kg - Exam Abdomen: Soft, nontender, nondistended Assessment/Plan (1) Morbid obesity Narrative/Plan: Patient will begin a calorie count at this time. Continue exercise regimen. Monitor weight loss. Follow-up 6 weeks. Plan: Date: 05/26/17 Initial Weight: 124.33 kg Initial BMI: 46.6 Current Weight: 95.3 kg Current BMI: 35.7 Type of Surgery: Total Volume in Band: Previous Volume: Volume Removed: Volume Added: Band Size:
== END | disposition home or self-care (01) ==
LOC: BARWHC3 15:26
PROVIDERS: ATTEND Surgery
DX: E66.01 Morbid (severe) obesity due to excess calories (principal); Z68.35 Body mass index [BMI] 35.0-35.9, adult
CPT/HCPCS: 99211

== ENCOUNTER → 2017-07-07 | Outpatient (CLI) | payer MEDICAID ==
[2017-07-07 16:00] VITALS: BP 127/65; PULSE 77; RESP 20; TEMP 99.1; BMI 34.9
--- NOTE | 2017-07-07 16:10 | P.BASOAP ---
Subjective Progress Note Date: 07/07/17 Principal diagnosis: Morbid obesity Patient doing well today. She was recently treated with oral steroids. Despite that she has managed to lose 3 pounds since her last visit. She still has occasional episodes of burning pain is somewhat crampy in nature in the epigastrium. This happens approximately 2 times per week. Usually at night. Still on antiacid therapy. No nausea or vomiting. She is exercising more lately with the change in weather. Objective - Vital Signs Vital signs: Vital Signs Temp 99.1 F 07/07/17 15:49 Pulse 77 07/07/17 15:49 Resp 20 07/07/17 15:49 BP 127/65 07/07/17 15:49 Pulse Ox Intake & Output 07/06/17 07/07/17 07/07/17 18:59 06:59 18:59 Weight 93.894 kg - Exam Abdomen: Soft, nontender, nondistended Assessment/Plan (1) Morbid obesity Narrative/Plan: Continue increase exercise level. Continue antiacids. Follow-up visit in 6-8 weeks. We'll order one year labs at that time. Plan: Date: 07/07/17 Initial Weight: 124.33 kg Initial BMI: 46.3 Current Weight: 93.894 kg Current BMI: 34.9 Type of Surgery: Total Volume in Band: Previous Volume: Volume Removed: Volume Added: Band Size:
== END | disposition home or self-care (01) ==
LOC: BARWHC3 15:38
PROVIDERS: ATTEND Surgery
DX: E66.01 Morbid (severe) obesity due to excess calories (principal); Z68.34 Body mass index [BMI] 34.0-34.9, adult; Z79.899 Other long term (current) drug therapy
CPT/HCPCS: 99211

== ENCOUNTER → 2017-09-08 | Outpatient (CLI) | payer MEDICAID ==
[2017-09-08 16:26] VITALS: BMI 35.6
--- NOTE | 2017-09-08 16:40 | P.BASOAP ---
Subjective Progress Note Date: 09/08/17 Principal diagnosis: Morbid obesity Patient returns for evaluation today. She is due for one year lab work. She has had mild epigastric abdominal pain approximately one time per week. Weight is fluctuating between 207-11. She is fairly active. She is concerned she may be not taking in enough calories. She does not do a food diary however. Objective - Vital Signs Vital signs: Intake & Output 09/07/17 09/08/17 09/08/17 18:59 06:59 18:59 Weight 95.708 kg - Exam Abdomen: Soft, nontender, nondistended Assessment/Plan (1) Morbid obesity Narrative/Plan: Patient will be seen by the dietitian today. Check annual labs. Start food diary. Plan: Date: Initial Weight: 124.33 kg Initial BMI: Current Weight: 95.708 kg Current BMI: 35.6 Type of Surgery: Total Volume in Band: Previous Volume: Volume Removed: Volume Added: Band Size:
[2017-09-08 16:48] VITALS: BP 135/79; PULSE 81; RESP 16; TEMP 98.7
== END | disposition home or self-care (01) ==
LOC: BARWHC3 15:33
PROVIDERS: ATTEND Surgery
DX: E66.01 Morbid (severe) obesity due to excess calories (principal); E44.1 Mild protein-calorie malnutrition; E55.9 Vitamin D deficiency, unspecified; Z71.3 Dietary counseling and surveillance; Z68.35 Body mass index [BMI] 35.0-35.9, adult
CPT/HCPCS: 97803; 99211

== ENCOUNTER → 2017-12-08 | Outpatient (CLI) | payer MEDICAID ==
[2017-12-08 15:53] VITALS: BP 142/63; PULSE 76; RESP 16; TEMP 98.8; BMI 36.6
--- NOTE | 2017-12-08 16:45 | P.BASOAP ---
Subjective Progress Note Date: 12/08/17 Principal diagnosis: Morbid obesity Patient doing well today. She has had increased heartburn lately. She is taking her antiacids twice daily. Some nighttime reflux. She has had the urge to vomit on occasion at night while sleeping. Weight increased slightly. She is eating well. No change in oral intake volume. Objective - Vital Signs Vital signs: Vital Signs Temp 98.8 F 12/08/17 15:51 Pulse 76 12/08/17 15:51 Resp 16 12/08/17 15:51 BP 142/63 12/08/17 15:51 Pulse Ox Intake & Output 12/07/17 12/08/17 12/08/17 18:59 06:59 18:59 Weight 98.43 kg - Exam Abdomen: Soft, nontender, nondistended Assessment/Plan (1) Morbid obesity Narrative/Plan: Continue dietary and exercise regimen. Will increase degree of exercise at this time. Continue antiacids. Follow-up 2 months. Plan: Date: 12/08/17 Initial Weight: 124.33 kg Initial BMI: 46.3 Current Weight: 98.43 kg Current BMI: 36.6 Type of Surgery: Total Volume in Band: Previous Volume: Volume Removed: Volume Added: Band Size:
== END ==
LOC: BARWHC3 15:42
PROVIDERS: ATTEND Surgery
DX: E66.01 Morbid (severe) obesity due to excess calories (principal); R12 Heartburn; Z79.899 Other long term (current) drug therapy; Z68.36 Body mass index [BMI] 36.0-36.9, adult
CPT/HCPCS: 99211

== ENCOUNTER 2018-03-17 20:56 | Emergency (ER) | payer MEDICAID ==
--- NOTE | 2018-03-17 21:15 | ED ---
SOB HPI - General Chief Complaint: Shortness of Breath Stated Complaint: asthma attack Time Seen by Provider: 03/17/18 21:14 Source: patient Mode of arrival: ambulatory Limitations: no limitations - History of Present Illness Initial Comments: Gretta is a pleasant 47-year-old female with a history of asthma who presents the ED this evening for evaluation of an asthma attack. Upon arrival the patient has 1-2 word dyspnea and history is provided primarily by her daughter. Patient has a history of exercised induced asthma as well as asthma that is sensitive to the weather. Patient was in an exercise class this evening when she began having trouble breathing. She went home and did 2 breathing treatments with no improvement which time her daughter brought her to the ER. Patient denies chest pain or fevers. She was reevaluated after breathing treatments. She reports feeling much better. Patient states that her nurse sister decided for New 's resolution to begin an exercise class. She reports she went to [employer] class today. She does admit that she was feeling somewhat wheezy before class and was worried she is coming in with a cold. She states she took her inhaler before the class but then during the class began having an asthma attack, she used her inhaler again then and then went home and used 2 updrafts. However she had persistent wheezing which is what prompted her to come to the ER. - Related Data Home Medications Medication Instructions Recorded Confirmed Albuterol Sulfate [Proair Hfa] 1 - 2 puff INHALATION RT-Q6H PRN 09/26/15 Citalopram Hydrobromide [CeleXA] 20 mg PO DAILY 09/26/15 03/17/18 Melatonin 5 mg PO HS PRN 09/26/15 03/17/18 diphenhydrAMINE [Benadryl] 25 mg PO HS PRN 09/26/15 03/17/18 Latanoprost Ophth [Xalatan 0.005%] 1 drops BOTH EYES HS 04/15/16 03/17/18 Omeprazole [PriLOSEC] 20 mg PO AC-BID 04/15/16 03/17/18 Albuterol Nebulized [Ventolin 2.5 mg INHALATION RT-QID PRN 03/17/18 03/17/18 Nebulized] Cyanocobalamin [Vitamin B-12 1,000 mcg SQ Q28D 03/17/18 03/17/18 Injection] Folic Acid 0.4 mg PO DAILY 03/17/18 03/17/18 Levothyroxine Sodium 150 mcg PO DAILY 03/17/18 03/17/18 Allergies Allergy/AdvReac Type Severity Reaction Status Date / Time No Known Allergies Allergy Verified 03/17/18 22:16 Review of Systems ROS Statement: Those systems with pertinent positive or pertinent negative responses have been documented in the HPI. ROS Other: All systems not noted in ROS Statement are negative. Past Medical History Past Medical History: Asthma, Diabetes Mellitus, Eye Disorder, GERD/Reflux, Hypertension, Pneumonia, Thyroid Disorder Additional Past Medical History / Comment(s): glaucoma,bursitis hips History of Any Multi-Drug Resistant Organisms: None Reported Past Surgical History: Adenoidectomy, Bariatric Surgery, Section, Tonsillectomy, Tubal Ligation Additional Past Surgical History / Comment(s): arthroscopic left shoulder surgery Gastric sleeve 10-01-16 Past Anesthesia/Blood Transfusion Reactions: Postoperative Nausea & Vomiting ( PONV) Past Psychological History: Depression Smoking Status: Former smoker Past Alcohol Use History: Rare Past Drug Use History: None Reported - Past Family History Mother Family Medical History: Rheumatoid Arthritis (RA), Vascular Disorder Additional Family Medical History / Comment(s): Graves disease, genetic blood vessel abnormality (HHT), pt tested and is negative Father Family Medical History: Cancer, Pulmonary Embolus Additional Family Medical History / Comment(s): from bladder cancer in 2013, he developed arterial blood clots, hernia issues, gluccoma, Brother(s) Family Medical History: No Reported History Daughter(s) Family Medical History: No Reported History Son(s) Family Medical History: No Reported History General Exam - General Exam Comments Initial Comments: Physical Exam GENERAL: Patient is well-developed and well-nourished. Patient is nontoxic and well- hydrated and is in no distress. HENT: Normocephalic, Atraumatic. EYES: PERRL, EOMI PULMONARY: Tachypnea, increased work of breathing, wheezing in all lung lackey CARDIOVASCULAR: Tachycardic, regular ABDOMEN: Soft and nontender with normal bowel sounds. SKIN: Skin is clear with no lesions or rashes and otherwise unremarkable. : Deferred NEUROLOGIC: Patient is alert and oriented x3. Moving all extremities spontaneously MUSCULOSKELETAL: Normal extremities with adequate strength and full range of motion. No lower extremity swelling or edema. No calf tenderness. PSYCHIATRIC: Normal psychiatric evaluation. Limitations: no limitations Limitations: no limitations Course Vital Signs 03/17/18 03/17/18 03/17/18 21:10 21:21 21:39 Temperature 98.4 F Pulse Rate 117 H 103 H 124 H Respiratory 20 Rate Blood Pressure 132/75 O2 Sat by Pulse 96 Oximetry 03/17/18 21:48 Temperature Pulse Rate 133 H Respiratory Rate Blood Pressure O2 Sat by Pulse Oximetry - Reevaluation(s) Reevaluation #1: Patient reevaluated she has had her breathing treatments and steroids is feeling much better 03/17/18 23:02 Medical Decision Making - Medical Decision Making The patient was seen and evaluated history was obtained from the patient and daughter Stan Whaley was ordered EKG sinus tachycardia with a rate of 105, normal axis normal intervals no acute ST elevations or depressions no evidence of acute ischemia or infarction She was reevaluated after breathing treatments heart rate is improved to the mid 90s to low 100 100s. Respiratory rate has improved, she is no longer wheezing she is feeling much better at this time patient is agreeable for plan with discharge home. All questions pertaining to care were answered the best of my ability return parameters were discussed and the patient was discharged home in stable condition. Disposition Clinical Impression: Asthma with exacerbation Disposition: HOME SELF-CARE Condition: Stable Instructions: Asthma (ED) Is patient prescribed a controlled substance at d/c from ED?: No Referrals: Jero Hernandez MD [Primary Care Provider] - 1-2 days
[2018-03-17] MEDS ORDERED: IPRATROPIUM-ALBUTEROL 3 ML NEB INHALATION STA (21:17)
[2018-03-17] MEDS ORDERED: predniSONE 20 MG TAB PO STA (22:37)
[2018-03-17 23:08] VITALS: PULSE 100; RESP 16; TEMP 98.6
[2018-03-17 23:19] VITALS: BP 110/71
== END 2018-03-17 23:13 | disposition home or self-care (01) ==
LOC: EC 20:56
DX: J45.901 Unspecified asthma with (acute) exacerbation (principal); R00.0 Tachycardia, unspecified; E07.9 Disorder of thyroid, unspecified; H40.9 Unspecified glaucoma; K21.9 Gastro-esophageal reflux disease without esophagitis; F32.9 Major depressive disorder, single episode, unspecified; Z87.891 Personal history of nicotine dependence; Z79.899 Other long term (current) drug therapy
CPT/HCPCS: 94640; 99284; J7512

== ENCOUNTER → 2018-12-07 | Outpatient (CLI) | payer MEDICAID ==
[2018-12-07 15:58] VITALS: BP 134/56; PULSE 80; RESP 16; TEMP 98.7; BMI 39.5
--- NOTE | 2018-12-07 17:39 | P.BASOAP ---
Subjective Progress Note Date: 12/07/18 Principal diagnosis: Morbid obesity Patient returns for reevaluation. Last seen approximately one year ago. Patient is 2 years post sleeve gastrectomy. She has gained 17 pounds since her last visit. Still not eating much. No significant appetite. Some reflux at times. Still taking omeprazole twice daily. She is less active than she was previously. No exercise regimen currently. Objective - Vital Signs Vital signs: Vital Signs Temp 98.7 F 12/07/18 15:54 Pulse 80 12/07/18 15:54 Resp 16 12/07/18 15:54 BP 134/56 12/07/18 15:54 Pulse Ox Intake & Output 12/06/18 12/07/18 12/07/18 18:59 06:59 18:59 Weight 106.141 kg - Exam Morbid obesity Assessment/Plan (1) Morbid obesity Narrative/Plan: Patient overall doing fairly well. Unfortunate she did gain weight since her last visit. Her annual labs performed in September look good. Will increase exercise level. Continue monitoring oral intake. Follow-up 3-6 months. Plan: Date: 12/07/18 Initial Weight: 124.33 kg Initial BMI: 46.3 Current Weight: 106.141 kg Current BMI: 39.5 Type of Surgery: Total Volume in Band: Previous Volume: Volume Removed: Volume Added: Band Size:
== END | disposition home or self-care (01) ==
LOC: BARWHC3 15:23
PROVIDERS: ATTEND Surgery
DX: E66.01 Morbid (severe) obesity due to excess calories (principal); Z68.39 Body mass index [BMI] 39.0-39.9, adult; Z98.84 Bariatric surgery status; Z79.899 Other long term (current) drug therapy
CPT/HCPCS: 99211

== ENCOUNTER → 2019-02-07 | Outpatient (CLI) | payer MEDICAID ==
--- NOTE | 2019-02-07 22:32 | MR ---
EXAMINATION TYPE: MR shoulder RT wo con DATE OF EXAM: 02/07/2019 COMPARISON: None HISTORY: Rt shoulder pain x 3 mos, no trauma TECHNIQUE: Multiplanar, multisequence imaging of the right shoulder is performed without contrast. FINDINGS: There is thickening and increased signal in the subscapularis tendon. The biceps tendon appears intac t. The glenoid reggie appear intact. There is thickening and variable signal increased in the supraspinatus tendon. There is no retraction . There is slight narrowing of the subacromial joint space. There is minor spurring at the AC joint. Humeral head is intact. Scapula appears intact. IMPRESSION: There is full-thickness tear of the supraspinatus tendon on the anterior aspect. No retraction. There is at least a partial tear of the subscapularis tendon. Minimal subacromial impingement. No fracture .
== END | disposition home or self-care (01) ==
LOC: RADMRIMAIN 19:31
PROVIDERS: ATTEND Orthopaedic Surgery
DX: M75.121 Complete rotator cuff tear or rupture of right shoulder, not specified as traumatic (principal)

== ENCOUNTER 2019-04-13 07:58 | Day surgery (SDC) | payer MEDICAID ==
[2019-04-08 13:52] VITALS: BMI 38.7
--- NOTE | 2019-04-12 14:01 | HP ---
HISTORY AND PHYSICAL REASON FOR ADMISSION: Surgery is scheduled for 04/13/2019. Gretta Morton is a 48-year-old patient who is seen with progressive right shoulder pain. Treatment options were discussed with her. She elected to proceed with arthroscopy. Consent regarding the procedure was obtained. PAST MEDICAL HISTORY: Gastroesophageal reflux disease, asthma. PAST SURGICAL HISTORY: section, left shoulder arthroscopy, gastric sleeve surgery. DAILY MEDICATIONS: 1. Celexa. 2. Omeprazole. 3. Vitamins. ALLERGIES: None. SOCIAL HISTORY: She denies current tobacco use. PHYSICAL EXAMINATION: Evaluation of the right shoulder: Flexion is 150 degrees, abduction is 100 degrees, external rotation is 50 degrees. Tenderness along the anterolateral acromion and rotator cuff insertion site. Impingement is positive at 90 degrees. Drop arm sign is positive. Her distal neurovascular exam is intact. RADIOGRAPHS: Right shoulder radiographs revealed a type 2 anterior acromion, as well as acromioclavicular joint osteoarthritis. An MRI of the right shoulder revealed rotator cuff tendon tear. IMPRESSION: 1. Right shoulder impingement with rotator cuff tear. 2. Hypothyroidism. 3. Gastroesophageal reflux disease. PLAN: Right shoulder arthroscopy with subacromial decompression, arthroscopic rotator cuff repair, arthroscopic Gilson procedure, possible arthroscopic biceps tenotomy and debridement. Her surgery is scheduled for 04/13/2019. MMODL / IJN: [id number] /
[~2019-04-13 07:58] MED LIST changes: -ENOXAPARIN 40 MG/0.4 ML SYRINGE SQ ONE; +HYDROmorphone 0.5 MG/0.5 ML SYRINGE IVP PRN; -METHYLENE BLUE 30 MG in DEXTROSE 5% IN WATER 500 ML IRRIGATION ONE; +MIDAZOLAM 2 MG/2 ML VIAL IV PRN; -SCOPOLAMINE 1.5MG/72HR PATCH TRANSDERM ONE; -ceFAZolin 2 GM in SODIUM CHLORIDE 0.9% 100 ML IVPB ONE; +fentaNYL (PF) 50 MCG/ML 2 ML AMP IVP PRN
[2019-04-13] MEDS: LACTATED RINGERS 1,000 ML IV SCH ×2 (08:42→09:26)
[2019-04-13] MEDS: ONDANSETRON 4 MG/2 ML VIAL IVP ONE ×2 (08:43→12:53)
[2019-04-13] MEDS ORDERED: SCOPOLAMINE 1.5MG/72HR PATCH TRANSDERM ONE (09:15)
[2019-04-13] MEDS ORDERED: PROPOFOL 10 MG/ML 20 ML VIAL IV ONE (09:26)
[2019-04-13] MEDS ORDERED: fentaNYL (PF) 50 MCG/ML 2 ML AMP ONE (09:26)
[2019-04-13] MEDS ORDERED: MIDAZOLAM 2 MG/2 ML VIAL ONE (09:26)
[2019-04-13] MEDS ORDERED: LIDOCAINE 1% INJ 10MG/ML (20 ML MDV) ONE (09:26)
[2019-04-13] MEDS ORDERED: GLYCOPYRROLATE 0.2 MG/ML 2 ML VIAL ONE (09:26)
[2019-04-13] MEDS ORDERED: ROCURONIUM BROMIDE 10 MG/ML 10 ML VIAL IV ONE (09:26)
[2019-04-13] MEDS ORDERED: DEXAMETHASONE SOD PHOSPHATE 4 MG/ML 1 ML VIAL ONE (09:26)
[2019-04-13] MEDS ORDERED: SUCCINYLCHOLINE CHLORIDE 100 MG/5 ML SYR IV ONE (09:26)
[2019-04-13] MEDS ORDERED: NEOSTIGMINE 1 MG/ML 10 ML VIAL ONE (09:26)
[2019-04-13] MEDS ORDERED: ROPIVACAINE 5 MG/ML 30 ML VIAL ONE (09:26)
[2019-04-13 11:02] VITALS: TEMP 97.6
[2019-04-13 11:11] VITALS: RESP 16
--- NOTE | 2019-04-13 11:11 | P.OP ---
Date of Procedure: 04/13/19 Preoperative Diagnosis: Right shoulder impingement Postoperative Diagnosis: 1. Right shoulder rotator cuff tear 2. Right shoulder impingement 3. Right shoulder acromioclavicular joint osteoarthritis 4. Right shoulder partial long head biceps tendon tear Procedure(s) Performed: 1. Right shoulder arthroscopic rotator cuff repair 2. Right shoulder arthroscopic subacromial decompression 3. Right shoulder arthroscopic Gilson procedure 4. Right shoulder arthroscopic biceps tenotomy Implants: 15.5 Arthrex swivel lock anchor Anesthesia: GETA, regional (Interscalene block) Surgeon: Tommy Conklin Childcare Worker #1: Filippo Melara Estimated Blood Loss (ml): 11 Pathology: none sent Condition: stable Disposition: PACU Indications for Procedure: 48-year-old patient seen with progressive right shoulder pain. After having treatment options discussed, she elected to proceed with arthroscopy Operative Findings: see description of procedure Description of Procedure: Patient underwent an interscalene block by department of anesthesia for postoperative pain management. The patient was then taken to the operative suite. The patient underwent a general anesthetic by the department of anesthesia. The patient was placed into a lateral position and secured. There was appropriate padding of the bony prominence. Right shoulder was then prepped and draped in normal sterile orthopedic fashion. We placed the extremity in 10 pounds of longitudinal traction. A posterior incision was now made for a posterior working portal site. The trocar and cannula were inserted into the glenohumeral joint. Arthroscopy was initiated. Spinal needle was now inserted anteriorly, to ascertain the anterior working portal site. An incision was now made in that area, a trocar was inserted followed by a probe. There was some hyperemia and partial tearing long head biceps tendon. I could visualize the rotator cuff tear which appeared along the posterior aspect of the distal supraspinatus. The labrum was probed and found to be stable. There were some grade 1 chondromalacia changes of the humeral head. I performed an arthroscopic biceps tenotomy. We again made sure the residual labrum was stable, and it was. At this point instruments removed from glenohumeral joint. Utilizing the posterior working portal site, the trocar and cannula were inserted into the subacromial space. Arthroscopy initiated. I made an incision 2 fingerbreadths lateral to the acromion. I introduced my trocar followed by my [employer]Care ablator. I now began ablating thick subacromial bursal tissue, which exposed the undersurface of the anterior acromion. There was diminished subacromial space. There was a very prominent anterior acromion. A motorized bur was introduced and a subacromial decompression was performed. I also excised some osteophytes off the inferior aspect of the distal clavicle. The AC joint was visualized and noted to be fairly arthritic. The motorized bur was intro duced in the anterior portal site and a Gilson procedure was performed without difficulty, decompressing the AC joint nicely. I turned my attention to the rotator cuff. There was a 11.5 cm rotator cuff tear. I debrided the margins getting down to stable tendon tissue. I abraded the footprint with a motorized bur. With the assistance of Yaya ROBBINS, I now passed 2 everted mattress sutures through good bites of rotator cuff tendon. I now punched a hole in the area of the footprint for insertion of an anchor. All 4 limbs of suture were now passed through a 5.5 Arthrex swivel lock anchor. I now introduced the eyelid into our pre-punch hole. Yaya ROBBINS tension the sutures and then deployed the anchor with good fixation noted. All residual suture limbs were now clipped. We had good compression of the tendon along the entire footprint. I injected 1 mL Renyte intra-articular. Instruments were now removed from the portal sites. All portal sites were approximated with nylon suture. Sterile dressings were applied followed by a shoulder sling. Filippo ROBBINS assisted in this complex case. The patient was awakened, transferred to a bed, and taken to recovery in stable condition.
[2019-04-13 13:16] VITALS: BP 136/70; PULSE 77
--- NOTE | 2019-04-13 14:16 | P.ANPRN ---
Procedure Note - Anesthesia - Nerve Block Performed Right Interscalene Single Time Out Performed: Yes Date of Procedure: 04/13/19 Procedure Start Time: 09:05 Procedure Stop Time: 09:10 Location of Patient: PreOp Indication: Acute Post-Operative Pain, Requested by Surgeon Sedation Type: Sedate with meaningful contact maintained Preparation: Sterile Prep Position: Supine Needle Types: Pajunk Needle Gauge: 21 Ultrasound used to visualize needle placement: Yes Ultrasound used to observe medication spread: Yes Blood Aspirated: No Pain Paresthesia on Injection Noted: No Resistance on Injection: Normal Image Stored and Saved: Yes Events: Uneventful and Well Tolerated (ropi .5% 30cc plus dexamethasone 4mg)
== END 2019-04-13 13:50 | disposition home or self-care (01) ==
LOC: OR 07:58
PROVIDERS: ATTEND Orthopaedic Surgery
DX: M75.101 Unspecified rotator cuff tear or rupture of right shoulder, not specified as traumatic (principal); M75.41 Impingement syndrome of right shoulder; M19.011 Primary osteoarthritis, right shoulder; M94.211 Chondromalacia, right shoulder; M66.821 Spontaneous rupture of other tendons, right upper arm; M24.111 Other articular cartilage disorders, right shoulder; K21.9 Gastro-esophageal reflux disease without esophagitis; J45.909 Unspecified asthma, uncomplicated; E03.9 Hypothyroidism, unspecified; F32.9 Major depressive disorder, single episode, unspecified; Z79.890 Hormone replacement therapy; Z79.51 Long term (current) use of inhaled steroids; Z79.899 Other long term (current) drug therapy; Z98.84 Bariatric surgery status
CPT/HCPCS: 64415; 81025; 76942; 29824; 29827; 29826; C1713; Q4212; J2250; J1100 ×2; J2710; J0690; J2405; J2001; J3010; J2795; J0330; J2704

== ENCOUNTER 2019-08-22 08:56 | Day surgery (SDC) | payer MEDICAID ==
[2019-08-19 14:43] VITALS: BMI 37.5
--- NOTE | 2019-08-21 10:18 | HP ---
HISTORY AND PHYSICAL DATE OF SERVICE: Surgery 08/22/2019 Gretta Morton is a 48-year-old patient seen with right shoulder adhesive capsulitis. We discussed options for treatment. She elected to proceed with manipulation under anesthesia of the right shoulder with steroid injection. Consent was obtained. PAST MEDICAL HISTORY: Asthma, hypertension, hypothyroidism. PAST SURGICAL HISTORY: Right shoulder arthroscopy, section, tonsillectomy, adenoidectomy. MEDICATIONS: Celexa, omeprazole. ALLERGIES: None. SOCIAL HISTORY: She denies current tobacco use. PHYSICAL EXAMINATION: Evaluation of the right shoulder: Her previous arthroscopic portal sites appear well healed. Flexion 120, abduction 90, external rotation 20 with weakness. Distal neurovascular exam intact. RADIOGRAPHS: Radiographs of the right shoulder revealed a conversion to a flat anterior acromion. IMPRESSION: 1. Right shoulder adhesive capsulitis. 2. History of right shoulder arthroscopic rotator cuff repair. 3. Hypertension. PLAN: Manipulation under anesthesia right shoulder with steroid injection. Surgery 08/22/2019. MMODL / IJN: [id number] /
[~2019-08-22 08:56] MED LIST changes: -DEXAMETHASONE SOD PHOSPHATE 10 MG/ML 1 ML VIAL IV ONE; -HYDROmorphone 0.5 MG/0.5 ML SYRINGE IVP PRN; +LACTATED RINGERS 1,000 ML IV SCH; +LIDOCAINE 1% (10MG/ML) FOR IV START INTRADERMA PRN; -LIDOCAINE 1% 20 ML VIAL (10MG/ML) FOR IV START INTRADERMA PRN; -MIDAZOLAM 2 MG/2 ML VIAL IV PRN; -fentaNYL (PF) 50 MCG/ML 2 ML AMP IVP PRN
[2019-08-22] MEDS ORDERED: MIDAZOLAM 2 MG/2 ML VIAL ONE (09:28)
[2019-08-22] MEDS ORDERED: LIDOCAINE 1% INJ 10MG/ML (20 ML MDV) ONE (09:28)
[2019-08-22] MEDS ORDERED: PROPOFOL 10 MG/ML 20 ML VIAL IV ONE (09:28)
[2019-08-22] MEDS ORDERED: fentaNYL (PF) 50 MCG/ML 2 ML AMP ONE (09:28)
[2019-08-22] MEDS ORDERED: methylPREDNISolone ACETATE 80 MG/ML 1 ML VIAL INTRAARTIC ONE (09:44)
[2019-08-22] MEDS ORDERED: BUPIVACAINE (PF) 0.25% 30 ML VIAL INTRAARTIC ONE (09:44)
--- NOTE | 2019-08-22 09:54 | P.OP ---
Date of Procedure: 08/22/19 Preoperative Diagnosis: Right shoulder adhesive capsulitis Postoperative Diagnosis: Right shoulder adhesive capsulitis Procedure(s) Performed: Manipulation under anesthesia right shoulder with steroid injection Anesthesia: MAC Surgeon: Tommy Conklin Estimated Blood Loss (ml): 0 Pathology: none sent Condition: stable Disposition: PACU Indications for Procedure: 48-year-old patient seen with right shoulder adhesive capsule is. I recommended manipulation under anesthesia with steroid injection, she was agreeable and consent was obtained. Operative Findings: See description of procedure Description of Procedure: The patient was taken to a monitored anesthesia area. She underwent IV sedation by the department of anesthesia. When adequate sedation was noted I performed a manipulation under anesthesia of the right shoulder achieving near full range of motion with audible tearing of the adhesions. We now sterilely prepped anterior aspect of the right shoulder and I injected a solution of 1 mL Depo-Medrol and 3 mL quarter percent plain Marcaine intra-articularglenohumeral joint. A sterile Band-Aid was applied. The patient was awakened having tolerated procedure well.
[2019-08-22] MEDS: HYDROmorphone 0.5 MG/0.5 ML SYRINGE IVP PRN ×4 (10:02→10:17)
[2019-08-22 10:11] VITALS: TEMP 98.4
[2019-08-22] MEDS ORDERED: HYDROcodone/APAP 10-325MG 1 EACH TAB PO ONE (11:04)
[2019-08-22 11:35] VITALS: BP 135/60; PULSE 80; RESP 18
== END 2019-08-22 11:42 | disposition home or self-care (01) ==
LOC: OR 08:56
PROVIDERS: ATTEND Orthopaedic Surgery
DX: M75.01 Adhesive capsulitis of right shoulder (principal); I10 Essential (primary) hypertension; J45.909 Unspecified asthma, uncomplicated; E03.9 Hypothyroidism, unspecified; Z90.89 Acquired absence of other organs; Z79.51 Long term (current) use of inhaled steroids; Z79.890 Hormone replacement therapy; Z79.899 Other long term (current) drug therapy
CPT/HCPCS: 23700; 81025; J2250; J1040; J2001; J3010; J2704; J1170

== ENCOUNTER → 2019-09-14 | Outpatient (CLI) | payer MEDICAID ==
--- NOTE | 2019-09-22 12:51 | HM ---
HOLTER MONITOR REPORT Patient was monitored for 48 hours. The baseline rhythm is sinus mechanism with normal conduction, the average rate 82 beats per minute, minimum 53, maximum 153 beats per minute. Ventricular ectopic activity was present in form of rare single PVCs. Supraventricular ectopic activity was present in form of rare single PACs. No diary was available. CONCLUSION: 1. Sinus mechanism baseline rhythm. 2. Rare ventricular ectopic activity. 3. Rare supraventricular ectopic activity. 4. No diary was available. MMODL / IJN: [id number] /
== END | disposition home or self-care (01) ==
LOC: RADECHMAIN 11:59
PROVIDERS: ATTEND Internal Medicine Geriatric Medicine
DX: I49.3 Ventricular premature depolarization (principal)
CPT/HCPCS: 93225; 93226

== ENCOUNTER → 2019-09-21 | Outpatient (CLI) | payer MEDICAID ==
--- NOTE | 2019-09-21 13:00 | ECHOS ---
STRESS ECHOCARDIOGRAM LUMASON: INDICATIONS: Palpitations MEDICATIONS: BASELINE HEART RATE: 64 BASELINE BLOOD PRESSURE: 149/59 MAXIMUM HEART RATE: 162 MAXIMUM BLOOD PRESSURE: 165/100 85% MPHR: 145 100% MPHR: 171 METS: 8.9 MAXIMUM STAGE REACHED: 3 TOTAL EXERCISE TIME: 7:30 CLINICAL INFORMATION: Baseline rhythm is a sinus mechanism, rate of 64, normal axis and intervals, minor nonspecific ST-T wave changes, baseline blood pressure 149/59 mmHg. Patient exercised on Virgilio protocol for 7 minutes, 30 seconds, reaching a peak rate of 160 beats per minute which is above her 85% maximum predicted heart rate. Peak blood pressure 165/100 mmHg. The test was terminated due to fatigue. There was no chest pain. Electrocardiograph monitoring revealed rare single PVCs. There was no evidence of diagnostic ischemic ST deviation. FINDINGS: Baseline echocardiogram revealed normal wall motion. At peak exercise, there was normal wall motion augmentation with no hypokinesis or dyskinesis. CONCLUSION: 1. Average exercise tolerance with normal echocardiograph response to exercise and rare PVCs. 2. Normal stress echocardiogram with no evidence of stress-induced ischemia. MMODL / IJN: [id number] /
== END | disposition home or self-care (01) ==
LOC: RADNMMAIN 09:10
PROVIDERS: ATTEND Internal Medicine Geriatric Medicine
DX: R00.2 Palpitations (principal)
CPT/HCPCS: 93351; Q9950

== ENCOUNTER → 2019-10-25 | Outpatient (CLI) | payer MEDICAID ==
[2019-10-25 15:43] VITALS: BP 134/87; PULSE 76; RESP 16; TEMP 98.6; BMI 38.2
--- NOTE | 2019-10-25 16:15 | P.BASOAP ---
Subjective Progress Note Date: 10/25/19 Principal diagnosis: Morbid obesity Patient returns for one year visit. Unfortunately since last visit she has had increasing reflux. Over the last 6 weeks she has had episodes of emesis. This sometimes will occur in the middle of the night. She has had a few episodes where she thought she aspirated as well. She is on Protonix twice a day and Pepcid twice a day without improvement. States she does not necessarily eat late at night. She does state she has a stomach sleeper. Emesis is frequently bilious. She has lost 8 pounds since last visit. No pain. Due for annual lab work. Objective - Vital Signs Vital signs: Vital Signs Temp 98.6 F 10/25/19 15:41 Pulse 76 10/25/19 15:41 Resp 16 10/25/19 15:41 BP 134/87 10/25/19 15:41 Pulse Ox Intake & Output 10/24/19 10/25/19 10/25/19 18:59 06:59 18:59 Weight 102.512 kg - Exam Abdomen: Soft, nontender, nondistended Assessment/Plan (1) Morbid obesity Narrative/Plan: Patient with worsening reflux unfortunately. We'll add Carafate. Check esophagogram followed by EGD. Further recommendations to follow. Possible need for conversion to bypass discussed. Try sleeping supine with head propped up. Plan: Date: 10/25/19 Initial Weight: 124.33 kg Initial BMI: 46.3 Current Weight: 102.512 kg Current BMI: 38.2 Type of Surgery: Vertical Sleeve Gastrectomy Total Volume in Band: Previous Volume: Volume Removed: Volume Added: Band Size:
== END | disposition home or self-care (01) ==
LOC: BARWHC3 15:31
PROVIDERS: ATTEND Surgery
DX: E66.01 Morbid (severe) obesity due to excess calories (principal); Z68.38 Body mass index [BMI] 38.0-38.9, adult
CPT/HCPCS: 99211

== ENCOUNTER → 2019-11-16 | Outpatient (CLI) | payer MEDICAID ==
--- NOTE | 2019-11-16 10:42 | FL ---
EXAMINATION TYPE: FL barium swallow DATE OF EXAM: 11/16/2019 CLINICAL HISTORY: Status post gastric sleeve 4 oz EZ paque-38 sec fl-Dr. Vaughn The patient ingested contrast without difficulty or delay. Noted are postsurgical changes of gastric sleeve. There is no evidence for leak or obstruction. Contrast is noted within the duodenum. IMPRESSION: Post-surgical change of gastric sleeve without evidence for obstruction or leak at this point in time.
== END | disposition home or self-care (01) ==
LOC: RADUSWWP 10:00
PROVIDERS: ATTEND Surgery
DX: R13.0 Aphagia (principal)
CPT/HCPCS: 74220

== ENCOUNTER 2019-11-22 07:39 | Day surgery (SDC) | payer MEDICAID ==
[2019-11-18 09:10] VITALS: BMI 35.5
[~2019-11-22 07:39] MED LIST changes: -LACTATED RINGERS 1,000 ML IV SCH
[2019-11-22 07:59] VITALS: RESP 16; TEMP 98.1
[2019-11-22] MEDS: LACTATED RINGERS 1,000 ML IV SCH ×2 (08:11→08:19)
[2019-11-22] MEDS ORDERED: fentaNYL (PF) 50 MCG/ML 2 ML AMP ONE (08:20)
[2019-11-22] MEDS ORDERED: MIDAZOLAM 2 MG/2 ML VIAL ONE (08:20)
[2019-11-22] MEDS ORDERED: PROPOFOL 10 MG/ML 20 ML VIAL IV ONE (08:20)
--- NOTE | 2019-11-22 08:20 | P.GSHP ---
History of Present Illness H&P Date: 11/22/19 Chief Complaint: GERD, vomiting 49-year-old female known to our service. Patient had previous sleeve gastrectomy. Over the last several months has had increasing episodes of nighttime reflux and vomiting. She is on ongoing antiacid therapy. No pain. Past Medical History Past Medical History: Asthma, Eye Disorder, GERD/Reflux, Pneumonia, Thyroid Disorder Additional Past Medical History / Comment(s): glaucoma, hx bursitis hips, varicose veins, hx ulcer yrs ago, bam's thyroid, hx iron deficiency amenia, History of Any Multi-Drug Resistant Organisms: None Reported Past Surgical History: Adenoidectomy, Bariatric Surgery, Section, Orthopedic Surgery, Tonsillectomy, Tubal Ligation Additional Past Surgical History / Comment(s): arthroscopic lana shoulder surgery(Rt shoulder 04/13/19), Gastric sleeve 10-01-16, rt shoulder manipulation 08/2019, HAS AN IUD Past Anesthesia/Blood Transfusion Reactions: Postoperative Nausea & Vomiting (PONV) Smoking Status: Former smoker - Past Family History Mother Family Medical History: Rheumatoid Arthritis (RA), Vascular Disorder Additional Family Medical History / Comment(s): Graves disease, genetic blood vessel abnormality (HHT), pt tested and is negative Father Family Medical History: Cancer, Pulmonary Embolus Additional Family Medical History / Comment(s): from bladder cancer in 2013, he developed arterial blood clots, Brother(s) Family Medical History: No Reported History Daughter(s) Family Medical History: No Reported History Son(s) Family Medical History: No Reported History Medications and Allergies Home Medications Medication Instructions Recorded Confirmed Type Albuterol Sulfate [Proair Hfa] 1 - 2 puff INHALATION RT-Q6H PRN 09/26/15 11/22/19 History Citalopram Hydrobromide [CeleXA] 20 mg PO HS 09/26/15 11/22/19 History Melatonin 5 mg PO HS PRN 09/26/15 11/22/19 History diphenhydrAMINE [Benadryl] 25 mg PO HS PRN 09/26/15 11/22/19 History Latanoprost Ophth [Xalatan 0.005%] 1 drops BOTH EYES HS 04/15/16 11/22/19 History Albuterol Nebulized [Ventolin 2.5 mg INHALATION QID PRN 03/17/18 11/22/19 History Nebulized] Cyanocobalamin [Vitamin B-12 1,000 mcg SQ Q28D 03/17/18 11/22/19 History Injection] Folic Acid 0.8 mg PO DAILY 03/17/18 11/22/19 History Budesonide-Formot 160-4.5 Mcg 2 puff INHALATION BID 08/19/19 11/22/19 History [Symbicort 160-4.5 Mcg Inhaler] Docusate [Colace] 200 mg PO BID 08/19/19 11/22/19 History Famotidine [Pepcid] 20 mg PO BID 08/19/19 11/22/19 History Pantoprazole [Protonix] 40 mg PO BID 08/19/19 11/22/19 History Sucralfate [Carafate] 1 gm PO ACHS #120 tab 10/25/19 11/22/19 Rx Levothyroxine Sodium [Synthroid] 100 mcg PO DAILY 11/18/19 11/22/19 History Allergies Allergy/AdvReac Type Severity Reaction Status Date / Time No Known Allergies Allergy Verified 11/22/19 08:01 Surgical - Exam Vital Signs Temp Pulse Resp BP Pulse Ox 98.1 F 79 16 129/79 96 11/22/19 07:57 11/22/19 07:57 11/22/19 07:57 11/22/19 07:57 11/22/19 07:57 Physical exam: General: Well-developed, well-nourished HEENT: Normocephalic, sclerae nonicteric Abdomen: Nontender, nondistended Extremities: No edema Neuro: Alert and oriented Assessment and Plan (1) GERD (gastroesophageal reflux disease) Narrative/Plan: Will proceed with upper endoscopy at this time. Current Visit: No Status: Acute Code(s): K21.9 - GASTRO-ESOPHAGEAL REFLUX DISEASE WITHOUT ESOPHAGITIS SNOMED Code(s): 074486268
--- NOTE | 2019-11-22 08:30 | P.PCN ---
Date of Procedure: 11/22/19 Procedure(s) Performed: Preoperative Dx: GERD Postoperative Dx:, Gastritis Procedure: EGD with Bx Anesthesia: Sedation Endoscopist: Dr. Barrera Specimens: Antrum Endoscopic Procedure: The patient was on the endoscopy table in the left decubitus position. The Olympus gastroscope was inserted into the oropharynx and passed under direct visualization to the region of the third portion of the duodenum. From that point the scope was slowly withdrawn inspecting all surfaces carefully. There were no neoplastic inflammatory or polypoid lesions throughout the duodenum. The pylorus was widely patent. The stomach was carefully inspected. There was minimal gastritis present. The patient sleeve gastrectomy appeared normal in shape and contour. There was no areas of stricture. No visible hiatal hernia was noted. The esophagus was then carefully examined. There were no neoplastic inflammatory or polypoid lesions throughout the visualized esophagus. The patient was then taken to the recovery room in stable condition per anesthesia guidelines. Recommendations: Continue antiacid therapy. If GERD persists patient may require conversion to Ignacio-en-Y bypass.
[2019-11-22 08:52] VITALS: BP 122/84; PULSE 76
[2019-11-22] MEDS ORDERED: HEPARIN SODIUM,PORCINE 100 UNIT/ML 5 ML VIAL IV ONE (08:58)
== END 2019-11-22 09:20 | disposition home or self-care (01) ==
LOC: ORWHC2ENDO 07:39
PROVIDERS: ATTEND Surgery
DX: K21.9 Gastro-esophageal reflux disease without esophagitis (principal); K29.50 Unspecified chronic gastritis without bleeding; Z98.84 Bariatric surgery status; J45.909 Unspecified asthma, uncomplicated; Z87.01 Personal history of pneumonia (recurrent); E07.9 Disorder of thyroid, unspecified; H40.9 Unspecified glaucoma; Z87.39 Personal history of other diseases of the musculoskeletal system and connective tissue; E06.3 Autoimmune thyroiditis; Z87.11 Personal history of peptic ulcer disease; I83.90 Asymptomatic varicose veins of unspecified lower extremity; D50.9 Iron deficiency anemia, unspecified; Z97.5 Presence of (intrauterine) contraceptive device; Z87.891 Personal history of nicotine dependence; Z82.61 Family history of arthritis; Z82.49 Family history of ischemic heart disease and other diseases of the circulatory system; Z83.49 Family history of other endocrine, nutritional and metabolic diseases; Z80.52 Family history of malignant neoplasm of bladder; Z79.51 Long term (current) use of inhaled steroids; Z79.899 Other long term (current) drug therapy; Z79.890 Hormone replacement therapy
CPT/HCPCS: 81025; 88305; 43239; J2250; J1642; J3010; J2704

== ENCOUNTER → 2019-12-14 | Outpatient (CLI) | payer MEDICAID ==
--- NOTE | 2019-12-14 14:57 | MR ---
EXAMINATION TYPE: MR shoulder RT wo con DATE OF EXAM: 12/14/2019 COMPARISON: Right shoulder MRI February 07, 2019. Right shoulder x-ray November 16, 2019 HISTORY: R shoulder pain with difficulty raising arm overhead, history of prior surgery April 13. TECHNIQUE: Multiplanar, multisequence imaging of the right shoulder is performed without contrast. FINDINGS: Rotator Cuff: There is no complete retracted tear of the infraspinatus tendon with some contraction j ust past level of the acromioclavicular joint coronal image 14 for reference. Supraspinatus tendon sh ows increased signal distally with more prominent focal full-thickness tear now identified coronal im age 10 as perhaps minimal residual fibers remain intact. Interval progression from prior study noted. Subscapularis tendon intact. Mild to moderate muscular atrophy of the infraspinatus tendon and teres minor muscles. Interval teari ng through the teres minor tendon is thought present. Acromioclavicular Joint: There is no superior displacement of the inferior margin of the acromion rel ative to the clavicle. Since the moderate capsular hypertrophy. Distal acromion is smaller in size escobedo ggesting partial ossific resection. Glenohumeral Joint: Persistent moderate to borderline severe narrowing. Small effusions redemonstrate d. No significant spurring. Slightly high positioning humeral head redemonstrated. Labrum: The superior labrum shows no heterogeneous increased signal suggesting tear. Biceps Tendon: The long head of biceps is in normal location within bicipital groove. Bone marrow signal: New artifact from rotator cuff thinning lateral humeral head noted coronal image 13. Other: No additional significant abnormality is appreciated. IMPRESSION: Interval rotator cuff surgery, new Retracted full-thickness tear infraspinatus tendon and likely teres minor tendon is felt present. Interval muscular atrophy noted. Worsening tendinosis and recurrent full-thickness tear supraspinatus tendon. Other findings as noted above.
== END | disposition home or self-care (01) ==
LOC: RADMRIMAIN 13:30
PROVIDERS: ATTEND Orthopaedic Surgery
DX: M75.121 Complete rotator cuff tear or rupture of right shoulder, not specified as traumatic (principal); M67.813 Other specified disorders of tendon, right shoulder; M62.511 Muscle wasting and atrophy, not elsewhere classified, right shoulder; M25.811 Other specified joint disorders, right shoulder; M25.411 Effusion, right shoulder

== ENCOUNTER 2020-02-22 07:11 | Day surgery (SDC) | payer MEDICAID ==
[2020-02-20 14:22] VITALS: BMI 34.7
--- NOTE | 2020-02-21 14:07 | HP ---
HISTORY AND PHYSICAL DATE OF SURGERY: 02/22/2020 Gretta Morton is a 49-year-old patient seen with progressive right shoulder pain. We discussed options for treatment. She elected to proceed with arthroscopy. Consent regarding the procedure was obtained. PAST MEDICAL HISTORY: Gastroesophageal reflux disease, hypertension. PAST SURGICAL HISTORY: section, shoulder arthroscopy, gastric sleeve surgery, section. MEDICATIONS: Celexa, omeprazole. ALLERGIES: None. SOCIAL HISTORY: She denies current tobacco use. PHYSICAL EVALUATION OF THE RIGHT SHOULDER: Flexion 150, abduction 140, external rotation is 40 with weakness, tenderness along the anterior lateral acromion rotator cuff insertion site. Impingement sign is positive at 100, distal neurovascular exam intact. RADIOGRAPHS: Right shoulder reveal a stable conversion to a flat anterior acromion. Right shoulder MRI revealed rotator cuff tendon tear. IMPRESSION: 1. Right shoulder impingement with rotator cuff tear. 2. Hypertension. 3. Gastroesophageal reflux disease. PLAN: Right shoulder arthroscopy with right rotator cuff repair and debridement. MMODL / IJN: [id number] /
[~2020-02-22 07:11] MED LIST changes: +DEXAMETHASONE SOD PHOSPHATE 4 MG/ML 1 ML VIAL IV ONE; +HYDROmorphone 0.5 MG/0.5 ML SYRINGE IVP PRN; +LACTATED RINGERS 1,000 ML IV SCH; -LIDOCAINE 1% (10MG/ML) FOR IV START INTRADERMA PRN; +MIDAZOLAM 2 MG/2 ML VIAL IV PRN; +ONDANSETRON 4 MG/2 ML VIAL IVP ONE
[2020-02-22] MEDS ORDERED: LIDOCAINE 1% (10MG/ML) FOR IV START INTRADERMA ONE (07:41)
[2020-02-22] MEDS ORDERED: SCOPOLAMINE 1.5MG/72HR PATCH TRANSDERM ONE (08:00)
[2020-02-22] MEDS ORDERED: MIDAZOLAM 2 MG/2 ML VIAL IV ONE (08:13)
[2020-02-22] MEDS ORDERED: fentaNYL (PF) 50 MCG/ML 2 ML AMP IV ONE (08:13)
--- NOTE | 2020-02-22 08:38 | P.ANPRN ---
Procedure Note - Anesthesia - Nerve Block Performed Right Interscalene Single Time Out Performed: Yes ([id number]) Date of Procedure: 02/22/20 Procedure Start Time: 08:13 Procedure Stop Time: :19 Location of Patient: PreOp Indication: Acute Post-Operative Pain, Requested by Surgeon Specifically requested for management of pain by DrNicolle: Tommy Conklin Sedation Type: Sedate with meaningful contact maintained Preparation: Sterile Prep Position: Supine Catheter: None Needle Types: Pajunk Needle Gauge: 21 Ultrasound used to visualize needle placement: Yes Ultrasound used to observe medication spread: Yes Injectate: 0.5% Ropivacaine (see comment for volume) (30cc) Blood Aspirated: No Pain Paresthesia on Injection Noted: No Resistance on Injection: Normal Image Stored and Saved: Yes Events: Uneventful and Well Tolerated
[2020-02-22] MEDS ORDERED: LIDOCAINE 1% INJ 10MG/ML (20 ML MDV) ONE (09:14)
[2020-02-22] MEDS ORDERED: GLYCOPYRROLATE 0.2 MG/ML 2 ML VIAL ONE (09:14)
[2020-02-22] MEDS ORDERED: PROPOFOL 10 MG/ML 20 ML VIAL IV ONE (09:14)
[2020-02-22] MEDS ORDERED: ROPIVACAINE 5 MG/ML 30 ML VIAL ONE (09:14)
[2020-02-22] MEDS ORDERED: MIDAZOLAM 2 MG/2 ML VIAL ONE (09:14)
[2020-02-22] MEDS ORDERED: HYDROmorphone (PF) 1 MG/ML ONE (09:14)
[2020-02-22] MEDS ORDERED: SUCCINYLCHOLINE CHLORIDE 100 MG/5 ML SYR IV ONE (09:14)
[2020-02-22] MEDS ORDERED: LACTATED RINGERS 1,000 ML IV ONE (10:44)
[2020-02-22 11:03] VITALS: TEMP 97.4
[2020-02-22 11:05] VITALS: RESP 16
--- NOTE | 2020-02-22 11:07 | P.OP ---
Date of Procedure: 02/22/20 Preoperative Diagnosis: Right shoulder rotator cuff tear Postoperative Diagnosis: 1. Right shoulder rotator cuff tear 2. Right shoulder labral tear Procedure(s) Performed: 1. Right shoulder arthroscopic rotator cuff repair 2. Right shoulder arthroscopic labral repair Implants: 23.5 Arthrex push lock anchors Anesthesia: GETA, regional (Interscalene block) Surgeon: Tommy Conklin Applications Project Manager #1: Filippo Melara Estimated Blood Loss (ml): 8 Pathology: none sent Condition: stable Disposition: PACU Indications for Procedure: 49-year-old patient seen with progressive right shoulder pain. After treatment options were discussed, she elected to proceed with arthroscopy. Operative Findings: See description of procedure Description of Procedure: Patient underwent an interscalene block by department of anesthesia. The patient was then taken to the operative suite. The patient underwent a general anesthetic by the department of anesthesia. The patient was placed into a lateral position and secured. There was appropriate padding of the bony prominence. Right shoulder was then prepped and draped in normal sterile orthopedic fashion. We placed the extremity in 10 pounds of longitudinal traction. A posterior incision was now made for a posterior working portal site. The trocar and cannula were inserted into the glenohumeral joint. Arthroscopy was initiated. Spinal needle was now inserted anteriorly, to ascertain the anterior working portal site. An incision was now made in that area, a trocar was inserted followed by a probe. There was an obvious superior labral tear from the 12:00 to the 2 o'clock position. There were grade 2 chondromalacia changes of the glenoid fossa. The remainder labrum was stable. There was evidence for previous biceps tenotomy. No loose bodies. I now inserted a cannula through the anterior portal site. I abraded the footprint of the labral tear with a small round motorized bur getting a good bleeding bony bed. I now passed to Arthrex suture links through good bites of labral tissue. I now with the assistance of Yaya ROBBINS drilled 2 holes for insertion of anchors in the area of the labral tears. I now one at a time repaired the labrum with 3.5 Arthrex push lock anchors with good compression of the labrum noted at both repair sites. Residual suture limbs were clipped. There was a good stable repair present. Instruments now removed from the glenohumeral joint. Utilizing the posterior working portal site, the trocar and cannula were inserted into the subacromial space. Arthroscopy initiated. I made an incision 2 fingerbreadths lateral to the acromion. I introduced my trocar followed by my ArthroCare ablator. There was a good subacromial space was without evidence previous decompression. There was evidence of previous acromioclavicular joint arthroplasty which is stable. I probed the distal rotator cuff tendon which was stable. There was some significant fraying along the intrasubstance anterior aspect of the mid body supraspinatus. After debrided that down utilizing a motorized shaver there was a 0.5 cm full-thickness perforation. I passed a suture through that area of perforation and repaired it with one single suture. The area was probed and we noted good stability of the repair site. I again thoroughly probed the remaining rotator cuff tendon was stable. I injected 1 mL Renyte intra-articular. Instruments now removed from the portal sites. All portal sites were approximated with nylon suture. Sterile dressings were applied followed by a shoulder sling. Filippo ROBBINS assisted in this complex case. The patient was awakened, transferred to a bed, and taken to recovery in stable condition.
[2020-02-22 12:17] VITALS: BP 128/76; PULSE 101
== END 2020-02-22 12:45 | disposition home or self-care (01) ==
LOC: OR 07:11
PROVIDERS: ATTEND Orthopaedic Surgery
DX: M75.121 Complete rotator cuff tear or rupture of right shoulder, not specified as traumatic (principal); S43.431A Superior glenoid labrum lesion of right shoulder, initial encounter; M75.41 Impingement syndrome of right shoulder; M94.211 Chondromalacia, right shoulder; K21.9 Gastro-esophageal reflux disease without esophagitis; I10 Essential (primary) hypertension; H40.9 Unspecified glaucoma; E07.9 Disorder of thyroid, unspecified; Z87.19 Personal history of other diseases of the digestive system; Z87.891 Personal history of nicotine dependence; Z79.890 Hormone replacement therapy; Z79.899 Other long term (current) drug therapy; Z98.891 History of uterine scar from previous surgery; Z98.84 Bariatric surgery status; Z98.890 Other specified postprocedural states; X58.XXXA Exposure to other specified factors, initial encounter
CPT/HCPCS: 29827; 29807; 64415; 81025; 76942; Q4212; C1713; J2250; J1100; J0690; J2405; J2001; J3010; J1170; J2795; J0330; J2704

== ENCOUNTER 2020-07-09 08:52 | Day surgery (SDC) | payer MEDICAID ==
[2020-07-05 14:43] VITALS: BMI 34.7
--- NOTE | 2020-07-08 12:05 | HP ---
HISTORY AND PHYSICAL REASON FOR ADMISSION: Surgery 07/09/2020 Gretta Morton is a 49-year-old patient seen with right shoulder adhesive capsulitis. History of previous arthroscopic rotator cuff repair. Options for treatment were discussed with her. She elected to proceed with manipulation under anesthesia right shoulder with steroid injection. Consent was obtained. PAST MEDICAL HISTORY: Hypertension, gastroesophageal reflux disease. PAST SURGICAL HISTORY: section, tonsillectomy, shoulder arthroscopy, gastric sleeve surgery. MEDICATIONS: Celexa, omeprazole, vitamins. ALLERGIES: None. SOCIAL HISTORY: She denies current tobacco use. PHYSICAL EXAMINATION: Evaluation of the right shoulder. She has previous well-healed arthroscopic portal sites. Flexion is 120, abduction is 90, external rotation is 30 with good strength. Drop-arm sign is negative. Her distal neurovascular exam is intact. RADIOGRAPHS: Right shoulder radiographs revealed a stable conversion to a flat anterior acromion. IMPRESSION: 1. Right shoulder adhesive capsulitis. 2. History of right shoulder arthroscopic rotator cuff repair. 3. Hypertension. 4. Gastroesophageal reflux disease. PLAN: Right shoulder manipulation under anesthesia with steroid injection. Surgery 07/09/2020. MMODL / IJN: [id number] /
[~2020-07-09 08:52] MED LIST changes: -DEXAMETHASONE SOD PHOSPHATE 4 MG/ML 1 ML VIAL IV ONE; -HYDROmorphone 0.5 MG/0.5 ML SYRINGE IVP PRN; +LIDOCAINE 1% (10MG/ML) FOR IV START INTRADERMA PRN; -MIDAZOLAM 2 MG/2 ML VIAL IV PRN; -ONDANSETRON 4 MG/2 ML VIAL IVP ONE
[2020-07-09 09:16] VITALS: RESP 16; TEMP 98.9
[2020-07-09] MEDS ORDERED: ONDANSETRON 4 MG/2 ML VIAL ONE (09:25)
[2020-07-09] MEDS ORDERED: KETOROLAC 15 MG/ML 1 ML VIAL IVP ONE (09:42)
[2020-07-09] MEDS ORDERED: PROPOFOL 10 MG/ML 20 ML VIAL IV ONE (10:01)
[2020-07-09] MEDS ORDERED: methylPREDNISolone ACETATE 80 MG/ML 1 ML VIAL INTRAARTIC ONE (10:04)
[2020-07-09] MEDS ORDERED: BUPIVACAINE (PF) 0.25% 30 ML VIAL INTRAARTIC ONE (10:04)
--- NOTE | 2020-07-09 10:07 | P.OP ---
Date of Procedure: 07/09/20 Preoperative Diagnosis: Right shoulder adhesive capsulitis Postoperative Diagnosis: Right shoulder adhesive capsulitis Procedure(s) Performed: Manipulation under anesthesia right shoulder with steroid injection Anesthesia: MAC, local Surgeon: Tommy Conklin Estimated Blood Loss (ml): 0 Pathology: none sent Condition: stable Disposition: PACU Indications for Procedure: 49-year-old patient seen with persistent right shoulder adhesive capsulitis with history of previous arthroscopic rotator cuff repair. After treatment options were discussed, she elected to proceed with manipulation under anesthesia with steroid injection. Operative Findings: See description of procedure Description of Procedure: The patient was taken to a monitored anesthesia area. She underwent IV sedation by the department of anesthesia. Once adequate sedation was noted I performed a manipulation of the right shoulder achieving near full range of motion with audible tearing of the adhesions. The anterior aspect of the shoulder was prepped and draped in the normal sterile orthopedic fashion. I injected solution of 1 mL Depo-Medrol and 3 mL quarter percent plain Marcaine intra- articular under sterile technique. I applied a sterile Band-Aid. I took the shoulder through range of motion. The patient was now awakened having tolerated procedure well.
[2020-07-09] MEDS ORDERED: HYDROmorphone 0.5 MG/0.5 ML SYRINGE IVP ONE ×2 (10:10→10:19)
[2020-07-09] MEDS: fentaNYL (PF) 50 MCG/ML 2 ML AMP IVP ONE ×3 (10:29→10:47)
[2020-07-09 12:11] VITALS: BP 112/67; PULSE 65
== END 2020-07-09 12:21 | disposition home or self-care (01) ==
LOC: OR 08:52
PROVIDERS: ATTEND Orthopaedic Surgery
DX: M75.01 Adhesive capsulitis of right shoulder (principal); I10 Essential (primary) hypertension; K21.9 Gastro-esophageal reflux disease without esophagitis; Z98.891 History of uterine scar from previous surgery; Z90.89 Acquired absence of other organs; Z98.890 Other specified postprocedural states; Z98.84 Bariatric surgery status; Z87.891 Personal history of nicotine dependence; E07.9 Disorder of thyroid, unspecified; F32.9 Major depressive disorder, single episode, unspecified; Z79.890 Hormone replacement therapy; Z79.899 Other long term (current) drug therapy; Z79.51 Long term (current) use of inhaled steroids
CPT/HCPCS: 23700; 81025; J1040; J2405; J3010; J1885; J2704; J1170

== ENCOUNTER → 2020-08-28 | Outpatient (CLI) | payer MEDICAID ==
[2020-08-28 15:33] VITALS: BP 123/66; PULSE 71; TEMP 98.1; BMI 37.3
--- NOTE | 2020-08-28 21:30 | P.BASOAP ---
Subjective Progress Note Date: 08/28/20 Principal diagnosis: Morbid obesity Patient returns for bariatric evaluation. Underwent recent EGD on 08/21 showing minimal gastritis. Patient has stopped her smoking altogether at this point. She is on Chantix now. She has 1 more visit with her supervised weight loss. She has lost 28 pounds since her first evaluation here. Objective - Vital Signs Vital signs: Vital Signs Temp 98.1 F 08/28/20 15:28 Pulse 71 08/28/20 15:28 Resp BP 123/66 08/28/20 15:28 Pulse Ox Intake & Output 08/28/20 08/28/20 08/29/20 06:59 18:59 06:59 Weight 100.244 kg - Exam Abdomen: Soft, nontender, nondistended Assessment/Plan (1) Morbid obesity Narrative/Plan: Patient remains interested in sleeve gastrectomy. Patient has 1 more month left with her supervised weight loss program. She has an upcoming appointment with our dietitian. Surgical risks and weight loss expectations again reviewed. We 'll proceed. Plan: Date: 08/28/20 Initial Weight: 124.33 kg Initial BMI: 46.3 Current Weight: 100.244 kg Current BMI: 37.3 Type of Surgery: Total Volume in Band: Previous Volume: Volume Removed: Volume Added: Band Size:
--- NOTE | 2020-08-28 21:33 | P.BASOAP ---
Subjective Progress Note Date: 08/28/20 Principal diagnosis: Morbid obesity Patient returns for bariatric follow-up. Last seen in October of last year. Underwent EGD in November showing gastritis. Patient continues to have persistent reflux and intermittent episodes of vomiting usually in the evening hours. States she has episodes of vomiting at night 2-3 times per week. No triggers that she can identify. She has tried Reglan, Protonix, Pepcid, Carafate without success. She has lost 5 pounds since last visit. Upper GI shows no evidence of obstruction or hernia. Objective - Vital Signs Vital signs: Vital Signs Temp 98.1 F 08/28/20 15:28 Pulse 71 08/28/20 15:28 Resp BP 123/66 08/28/20 15:28 Pulse Ox Intake & Output 08/28/20 08/28/20 08/29/20 06:59 18:59 06:59 Weight 100.244 kg - Exam Abdomen: Soft, nontender, nondistended Assessment/Plan (1) Morbid obesity Narrative/Plan: Patient unfortunately is having ongoing issues with severe reflux and frequent vomiting. Once again discussed options of conversion to gastric bypass.. We'll make appointment for her discussed with her bariatric surgeon that performs the bypass to discuss potential benefits of that option further. Continue antacid therapy. Recent annual labs reviewed and looked good.
== END | disposition home or self-care (01) ==
LOC: BARWHC3 14:43
PROVIDERS: ATTEND Surgery
DX: E66.01 Morbid (severe) obesity due to excess calories (principal); Z68.37 Body mass index [BMI] 37.0-37.9, adult
CPT/HCPCS: 99211

== ENCOUNTER → 2021-01-11 | Outpatient (CLI) | payer MEDICAID ==
[2021-01-11 22:59] LABS: HCT 41.3 % (37.2-46.3); HGB 13.3 g/dL (12.0-15.0); MCH 30.2 pg (27.0-32.0); MCHC 32.2 g/dL (32.0-37.0); MCV 93.9 fL (80.0-97.0); Mean Platelet Volume 11.3 fL (9.5-12.2); Platelet Count 369 X 10*3/uL (140-440); RDW 12.9 % (11.5-14.5); WBC 6.31 X 10*3/uL (4.50-10.00)
[2021-01-12 03:54] LABS: African American GFR (CKD) 114.9 (60.0-200.0); Albumin 4.4 g/dL (3.8-4.9); Albumin/Globulin Ratio 1.63 (1.60-3.17); Anion Gap 14.6 mmol/L (4.00-12.00); BUN/Creat Ratio 10.69 Ratio (12.00-20.00); Blood Urea Nitrogen 7.6 mg/dL (9.0-27.0); Calcium 9.8 mg/dL (8.7-10.3); Carbon Dioxide 23.1 mmol/L (21.6-31.8); Globulin 2.7 g/dL (1.6-3.3); Non-African American GFR(CKD) 99.1 (60.0-200.0); Potassium 4.7 mmol/L (3.5-5.5); Total Bilirubin 0.5 mg/dL (0.30-1.20); Total Protein 7.1 g/dL (6.2-8.2)
== END | disposition home or self-care (01) ==
LOC: LABWHC1 13:59
PROVIDERS: ATTEND Surgery
DX: K91.2 Postsurgical malabsorption, not elsewhere classified (principal); K66.8 Other specified disorders of peritoneum
CPT/HCPCS: 36415; 80053; 85027

== ENCOUNTER → 2021-02-05 | Outpatient (CLI) | payer MEDICAID, OTHER | END | disposition home or self-care (01) | LOC: LABWHC1 17:47 | PROVIDERS: ATTEND Emergency Medicine | DX: Z03.818 Encounter for observation for suspected exposure to other biological agents ruled out (principal) | CPT/HCPCS: 87635 ==

== ENCOUNTER → 2021-02-06 | Outpatient (CLI) | payer MEDICAID, OTHER | END | disposition home or self-care (01) | LOC: LABWHC1 17:38 | PROVIDERS: ATTEND Emergency Medicine | DX: Z03.818 Encounter for observation for suspected exposure to other biological agents ruled out (principal) | CPT/HCPCS: 87635 ==

== ENCOUNTER → 2022-02-13 | Outpatient (CLI) | payer MEDICAID ==
--- NOTE | 2022-02-14 05:24 | MR ---
EXAMINATION TYPE: MR shoulder RT wo con DATE OF EXAM: 02/13/2022 COMPARISON: 12/14/2019 HISTORY: Right shoulder pain Multiplanar multi echo imaging of the right shoulder performed with no contrast. There is shoulder joint effusion. There is subacromial subdeltoid effusion. There is apparent previou s reconstructive surgery at the greater tuberosity of the humerus. There is small areas of increased signal in the supraspinatus tendon over the humeral head. No definite full-thickness tear. The infras pinatus tendon is intact. Subscapularis tendon is intact. The glenoid reggie appear intact. The biceps tendon is intact. IMPRESSION: There is significant improvement in the supraspinatus tendon appearance compared to old exam. There a re small tears in the supraspinatus tendon without retraction. There is repair of the large tear and retraction evident on old exam. No definite full-thickness tear. There is shoulder joint effusion and subdeltoid effusion similar to old exam.
== END | disposition home or self-care (01) ==
LOC: RADMRIMAIN 16:58
PROVIDERS: ATTEND Orthopaedic Surgery
DX: M25.411 Effusion, right shoulder (principal)

== ENCOUNTER 2022-03-12 12:19 | Day surgery (SDC) | payer MEDICAID ==
[2022-03-11 10:55] VITALS: BMI 26.4
[2022-03-12] MEDS: LACTATED RINGERS 1,000 ML IV SCH ×2 (12:32→13:26)
[2022-03-12 12:38] VITALS: RESP 18; TEMP 97.3
[2022-03-12] MEDS ORDERED: PROPOFOL 10 MG/ML 20 ML VIAL IV ONE (13:28)
[2022-03-12] MEDS ORDERED: LIDOCAINE 2% INJ 20 MG/ML (2 ML VIAL) ONE (13:28)
--- NOTE | 2022-03-12 13:31 | P.GSHP ---
History of Present Illness H&P Date: 03/12/22 Patient presents for routine colon cancer screening. No issues with her bowel habits.. There is a distant family history of colon cancer in a grandmother. She's had a colonoscopy in the past without polyps. - Review of Systems All systems: negative Past Medical History Past Medical History: Asthma, Eye Disorder, GERD/Reflux, Osteoarthritis (OA), Pneumonia, Thyroid Disorder Additional Past Medical History / Comment(s): Glaucoma, hx bursitis in hips, varicose veins, hx ulcer yrs ago, Simba's Thyroiditis, hx Iron Deficiency [place], hx Gestational Diabetes. History of Any Multi-Drug Resistant Organisms: None Reported Past Surgical History: Adenoidectomy, Bariatric Surgery, Section, Orthopedic Surgery, Tonsillectomy, Tubal Ligation Additional Past Surgical History / Comment(s): Arthroscopic bilateral shoulder surgery, Gastric Sleeve then converted to rouxeny JAN 03 Past Anesthesia/Blood Transfusion Reactions: Postoperative Nausea & Vomiting (PONV) Smoking Status: Former smoker - Past Family History Mother Family Medical History: Cancer Additional Family Medical History / Comment(s): Skin Cancer. Father Family Medical History: Cancer, Pulmonary Embolus Additional Family Medical History / Comment(s): from bladder cancer in 2013, he developed arterial blood clots. Brother(s) Family Medical History: No Reported History Daughter(s) Family Medical History: No Reported History Son(s) Family Medical History: No Reported History Medications and Allergies Home Medications Medication Instructions Recorded Confirmed Type Albuterol Sulfate [Proair Hfa] 1 - 2 puff INHALATION RT-Q6H PRN 09/26/15 03/11/22 History Citalopram Hydrobromide [CeleXA] 20 mg PO HS 09/26/15 03/12/22 History Melatonin 5 mg PO HS PRN 09/26/15 03/12/22 History diphenhydrAMINE [Benadryl] 25 mg PO HS PRN 09/26/15 03/12/22 History Latanoprost Ophth [Xalatan 0.005%] 1 drops BOTH EYES HS 04/15/16 03/12/22 History Albuterol Nebulized [Ventolin 2.5 mg INHALATION QID PRN 03/17/18 03/11/22 History Nebulized] Cyanocobalamin [Vitamin B-12 1,000 mcg SQ Q14D 03/17/18 03/12/22 History Injection] Folic Acid 0.8 mg PO DAILY 03/17/18 03/12/22 History Budesonide-Formot 160-4.5 Mcg 2 puff INHALATION BID 08/19/19 03/11/22 History [Symbicort 160-4.5 Mcg Inhaler] Pantoprazole [Protonix] 40 mg PO BID 08/19/19 03/12/22 History Levothyroxine Sodium [Synthroid] 112 mcg PO HS 11/18/19 03/12/22 History Allergies Allergy/AdvReac Type Severity Reaction Status Date / Time No Known Allergies Allergy Verified 03/12/22 12:33 Surgical - Exam Osteopathic Statement: *. No significant issues noted on an osteopathic structural exam other than those noted in the History and Physical/Consult. Vital Signs Temp Pulse Resp BP Pulse Ox 97.3 F L 85 18 117/65 97 03/12/22 12:37 03/12/22 12:37 03/12/22 12:37 03/12/22 12:37 03/12/22 12:37 - General well developed, well nourished - Eyes normal ocular movement - Respiratory normal respiratory effort - Abdomen Abdomen: soft, non tender Assessment and Plan (1) Colon cancer screening Current Visit: Yes Status: Acute Code(s): Z12.11 - ENCOUNTER FOR SCREENING FOR MALIGNANT NEOPLASM OF COLON SNOMED Code(s): 983119574 Plan: Colonoscopy. The procedure, risks and complications were discussed. Questions were encouraged and answered.
--- NOTE | 2022-03-12 13:58 | P.PCN ---
Date of Procedure: 03/12/22 Preoperative Diagnosis: Colon cancer screening Postoperative Diagnosis: Colon cancer screening, diverticulosis Procedure(s) Performed: Colonoscopy Anesthesia: MAC Surgeon: Vanessa Mclaughlin Pathology: none sent Condition: stable Disposition: PACU Indications for Procedure: The patient presents for colon cancer screening. Distant history of colon cancer in her grandmother Description of Procedure: Patient is taken to the endoscopy suite where colonoscope is passed per rectum to the cecum. There is a good prep. She has a few diverticuli scattered in the sigmoid colon. Otherwise the colon was without evidence of polyp, mass lesion, ulcer, stricture or other mucosal abnormality. Some small internal hemorrhoids seen on retroflexion of the scope. She tolerated the procedure without difficulty and was taken to recovery room in satisfactory condition. Repeat colonoscopy in 10 years as long as nothing changes with the bowel habits. Plan - Discharge Summary New Discharge Prescriptions: No Action Albuterol Sulfate [Proair Hfa] 1 - 2 puff INHALATION RT-Q6H PRN PRN Reason: Shortness Of Breath diphenhydrAMINE [Benadryl] 25 mg PO HS PRN PRN Reason: Nasal Congestion Melatonin 5 mg PO HS PRN PRN Reason: Insomnia Citalopram Hydrobromide [CeleXA] 20 mg PO HS Latanoprost Ophth [Xalatan 0.005%] 1 drops BOTH EYES HS Folic Acid 0.8 mg PO DAILY Cyanocobalamin [Vitamin B-12 Injection] 1,000 mcg SQ Q14D Albuterol Nebulized [Ventolin Nebulized] 2.5 mg INHALATION QID PRN PRN Reason: sob Pantoprazole [Protonix] 40 mg PO BID Budesonide-Formot 160-4.5 Mcg [Symbicort 160-4.5 Mcg Inhaler] 2 puff INHALATION BID Levothyroxine Sodium [Synthroid] 112 mcg PO HS Discharge Medication List Albuterol Sulfate [Proair Hfa] 1 - 2 puff INHALATION RT-Q6H PRN 09/26/15 [History] Citalopram Hydrobromide [CeleXA] 20 mg PO HS 09/26/15 [History] Melatonin 5 mg PO HS PRN 09/26/15 [History] diphenhydrAMINE [Benadryl] 25 mg PO HS PRN 09/26/15 [History] Latanoprost Ophth [Xalatan 0.005%] 1 drops BOTH EYES HS 04/15/16 [History] Albuterol Nebulized [Ventolin Nebulized] 2.5 mg INHALATION QID PRN 03/17/18 [History] Cyanocobalamin [Vitamin B-12 Injection] 1,000 mcg SQ Q14D 03/17/18 [History] Folic Acid 0.8 mg PO DAILY 03/17/18 [History] Budesonide-Formot 160-4.5 Mcg [Symbicort 160-4.5 Mcg Inhaler] 2 puff INHALATION BID 08/19/19 [History] Pantoprazole [Protonix] 40 mg PO BID 08/19/19 [History] Levothyroxine Sodium [Synthroid] 112 mcg PO HS 11/18/19 [History]
[2022-03-12 14:12] VITALS: BP 110/50; PULSE 84
== END 2022-03-12 14:31 | disposition home or self-care (01) ==
LOC: ORWHC2ENDO 12:19
PROVIDERS: ATTEND Surgery
DX: Z12.11 Encounter for screening for malignant neoplasm of colon (principal); K57.30 Diverticulosis of large intestine without perforation or abscess without bleeding; K64.8 Other hemorrhoids; Z80.0 Family history of malignant neoplasm of digestive organs; J45.909 Unspecified asthma, uncomplicated; K21.9 Gastro-esophageal reflux disease without esophagitis; M19.90 Unspecified osteoarthritis, unspecified site; H40.9 Unspecified glaucoma; E06.3 Autoimmune thyroiditis; Z79.890 Hormone replacement therapy; Z79.51 Long term (current) use of inhaled steroids; Z86.32 Personal history of gestational diabetes; Z86.2 Personal history of diseases of the blood and blood-forming organs and certain disorders involving the immune mechanism; Z87.39 Personal history of other diseases of the musculoskeletal system and connective tissue; I83.90 Asymptomatic varicose veins of unspecified lower extremity; Z98.51 Tubal ligation status; Z98.84 Bariatric surgery status; Z98.890 Other specified postprocedural states; Z87.891 Personal history of nicotine dependence; Z83.6 Family history of other diseases of the respiratory system; Z80.8 Family history of malignant neoplasm of other organs or systems; Z80.52 Family history of malignant neoplasm of bladder; Z79.891 Long term (current) use of opiate analgesic; Z79.899 Other long term (current) drug therapy; Z79.1 Long term (current) use of non-steroidal anti-inflammatories (NSAID)
CPT/HCPCS: 45378; 81025; J2704; J2001; G0121

== ENCOUNTER → 2022-04-02 | Outpatient (CLI) | payer MEDICAID ==
--- NOTE | 2022-04-02 16:27 | XR ---
EXAMINATION TYPE: XR lumbar spine 2 or 3V DATE OF EXAM: 04/02/2022 4:06 PM INDICATION: Patient age:Female; 51 years old; Reason for study: M51.16; COMPARISON: None TECHNIQUE: Frontal, lateral and coned in L5-S1 lateral views of the spine. FINDINGS: Scoliosis apex L4. Scattered osteophyte formation of the spine. Mild scattered disc space n arrowing. Normal alignment noted. Scattered facet joint arthropathy. IMPRESSION: 1. No acute fracture. 2. Mild multilevel disc degeneration with dextroscoliosis apex L4.
== END | disposition home or self-care (01) ==
LOC: RADXRMAIN 15:50
PROVIDERS: ATTEND Nurse Practitioner Family
DX: M51.16 Intervertebral disc disorders with radiculopathy, lumbar region (principal); M41.86 Other forms of scoliosis, lumbar region
CPT/HCPCS: 72100

== ENCOUNTER 2022-07-01 09:16 | Day surgery (SDC) | payer MEDICAID ==
[2022-06-27 15:25] VITALS: BMI 25.7
[2022-07-01] MEDS ORDERED: LIDOCAINE 1% (10MG/ML) FOR IV START INTRADERMA PRN (09:37)
[2022-07-01] MEDS ORDERED: LACTATED RINGERS 1,000 ML IV SCH (09:37)
[2022-07-01 10:10] VITALS: RESP 16; TEMP 98.6
[2022-07-01] MEDS ORDERED: MIDAZOLAM 2 MG/2 ML VIAL ONE (10:10)
[2022-07-01] MEDS ORDERED: fentaNYL (PF) 50 MCG/ML 2 ML AMP ONE (10:10)
--- NOTE | 2022-07-01 10:21 | P.PCN ---
Date of Procedure: 07/01/22 Procedure(s) Performed: Preoperative diagnosis: Multiple sclerosis Post operative diagnoses: Multiple sclerosis Procedure= lumbar puncture Anesthesia= moderate sedation with Versed 2 mg , and fentanyl 50 g, local infiltration with lidocaine 1% 2 mL. Sedation start time :1012 Sedation end time : 1017 Condition: stable Complication: none. Description of the procedure procedure risk and benefits discussed with the patient , consent signed. Patient and the procedure area placed in sitting position , back prepped with chlorhexidine 3 times been local infiltration of the skin and subcutaneous tissue with lidocaine 1% 2 mL for skin and subcu interstitial frustrations at L4 5 levels then 22-gauge Quincke-type needle advanced slowly at L4- 5 interlaminar space there was positive cerebrospinal fluid which was clear, no heme, no paresthesia ,total of 8 ML of clear cerebrospinal fluid collected in 4 different tubes 2 mL in each, then the needle removed and a Band-Aid applied and patient tolerated the procedure well without any complications.
[2022-07-01] MEDS ORDERED: IV FLUID CONTINUATION 900 ML IV ONE (10:26)
[2022-07-01 10:47] VITALS: BP 108/52; PULSE 67
[2022-07-01 18:03] LABS: Appearance,CSF Clear; CSF Tube Number 4
[2022-07-01 18:07] LABS: Glucose,CSF 47 mg/dL (40-70); Total Protein,CSF 38 mg/dL (12-60)
[2022-07-01 18:21] LABS: Nucleated Cells, CSF 3 u/L (0-5); Red Blood Cell,CSF 0 u/L (0-10)
== END 2022-07-01 10:55 | disposition home or self-care (01) ==
LOC: ORPAIN 09:16
PROVIDERS: ATTEND Specialist
DX: G35 Multiple sclerosis (principal)
CPT/HCPCS: 84157; 82945; 89050; 62270; J2250; J3010; 88108

== ENCOUNTER → 2022-07-05 | Outpatient (CLI) | payer MEDICAID ==
[2022-07-07 15:05] LABS: APTT 40 Sec(s) (<43); Dilute Russell Viper Venom 36 Sec(s) (<44)
== END | disposition home or self-care (01) ==
LOC: LABWHC1 11:50
PROVIDERS: ATTEND Psychiatry & Neurology Neurology
DX: R93.0 Abnormal findings on diagnostic imaging of skull and head, not elsewhere classified (principal); R20.2 Paresthesia of skin
CPT/HCPCS: 36415; 85613; 85730

== ENCOUNTER → 2022-08-29 | Outpatient (CLI) | payer MEDICAID ==
--- NOTE | 2022-08-29 23:29 | MR ---
EXAMINATION TYPE: MR lumbar spine wo con DATE OF EXAM: 08/29/2022 8:36 PM COMPARISON: Lumbar spine radiograph 04/02/2022. CLINICAL INDICATION: Female, 51 years old with history of R20.2 M79.671 M21.371 R29.2; PHH, PAIN AND NUMBNESS ON RT SIDE X8 MONTHS TECHNIQUE: Multi planar, multi sequence imaging was performed utilizing: T1-weighted, T2-weighted, a nd turbo inversion recovery imaging of the lumbar spine. IV Contrast: None. FINDINGS: Alignment: The lumbar vertebral bodies have preserved heights and alignment. Cord: The conus medullaris and the distal spinal cord appear unremarkable with regards to their signa l intensity and morphology. Bones/Discs: Scattered Modic endplate changes are seen throughout the spine. Reactive bony edema donn g the adjoining endplates of the lower spine. Scattered osteophyte formation disc space narrowing. Mu ltilevel disc degenerative is noted and most pronounced at the L2-L5. Scattered disc desiccation is p resent. T12-L1: No evidence of significant spinal canal stenosis or neural foraminal stenosis. L1-L2: No evidence of significant spinal canal stenosis or neural foraminal stenosis. L2-L3: Central disc extrusion without significant spinal canal stenosis. There is 7 mm inferior migra tion. Mild to moderate bilateral neural foraminal stenosis. L3-L4: Disc bulge and facet joint arthropathy result in mild spinal canal and mild to moderate bilate ral neural foraminal stenosis. L4-L5: Disc bulge and facet joint arthropathy result in mild spinal canal and mild to moderate bilate ral neural foraminal stenosis. L5-S1: The disc is rounded posterior morphology without significant spinal canal stenosis. Facet join t arthropathy with mild to moderate bilateral neural foraminal stenosis. No significant spinal canal or neural foraminal stenosis in the remainder of the visualized levels. Other findings: Probable gallstone present in the gallbladder lumen. IMPRESSION: 1. L2-L3 disc herniation without significant spinal canal stenosis. 2. Multilevel neural foraminal stenosis as described above. Findings worse on the right at L2-L3 thr ough L5-S1 at least mild to moderate neural foraminal stenosis. No evidence for high-grade right neur al foraminal stenosis to explain the patient's symptoms.
== END | disposition home or self-care (01) ==
LOC: RADMRIMAIN 19:28
PROVIDERS: ATTEND Psychiatry & Neurology Neurology
DX: M51.26 Other intervertebral disc displacement, lumbar region (principal); M48.061 Spinal stenosis, lumbar region without neurogenic claudication; R20.2 Paresthesia of skin; M79.671 Pain in right foot; M21.371 Foot drop, right foot; R29.2 Abnormal reflex
CPT/HCPCS: 72148

== ENCOUNTER → 2023-04-22 | Outpatient (CLI) | payer MEDICAID ==
--- NOTE | 2023-04-29 09:48 | MR ---
EXAMINATION TYPE: MR shoulder RT wo con DATE OF EXAM: 04/22/2023 COMPARISON: MRI right shoulder 02/13/2022. Radiographs right shoulder 04/15/2023 HISTORY: Rt shoulder pain TECHNIQUE: Multiplanar, multisequence imaging of the right shoulder is performed without contrast. FINDINGS: SUPRASPINATUS: Postsurgical changes related to supraspinatus repair. No full-thickness or retracted r e-tear. INFRASPINATUS: Postsurgical changes related to infraspinatus repair. No full-thickness or retracted r e-tear. SUBSCAPULARIS: Intact. TERES MINOR: Intact. BICEPS: The biceps tendon is significantly diminutive, may relate to postsurgical change and/or chron ic tear. GLENOHUMERAL JOINT: Normal alignment and joint space. Area of full-thickness articular cartilage loss involving the central humerus in the superior aspect of the glenoid. No effusion. ACROMIOCLAVICULAR JOINT: Degenerative subchondral cystic changes at the AC joint Normal subacromial s pace. No effusion. LABRUM: Postsurgical changes relating to labral repair at the anterosuperior quadrant SUBDELTOID BURSA: Increased fluid within the subdeltoid bursa. MUSCLES: Normal. BONE MARROW: Normal. OTHER: No additional significant abnormality is appreciated. IMPRESSION: 1. Postsurgical changes of the supraspinatus, infraspinatus, and labrum. 2. Postsurgical changes and/or chronic tear of the long head biceps tendon. 3. Glenohumeral chondromalacia. 4. Subdeltoid bursitis
== END | disposition home or self-care (01) ==
LOC: RADMRIMAIN 13:19
PROVIDERS: ATTEND Orthopaedic Surgery
DX: M25.511 Pain in right shoulder (principal); Z98.890 Other specified postprocedural states

== ENCOUNTER → 2023-08-05 | Outpatient (CLI) | payer MEDICAID ==
--- NOTE | 2023-08-11 14:27 | MR ---
EXAMINATION TYPE: MR cervical spine wo con DATE OF EXAM: 08/05/2023 COMPARISON: HISTORY: Neck pain and stiffness x18 months, Headaches CONTRAST: Performed utilizing mL intravenous gadolinium contrast. TECHNIQUE: Multiplanar multiecho imaging on a 3.0 Leslee magnet is performed through the cervical spin e. FINDINGS: The craniovertebral junction is normal. Vertebral body alignment is normal. C7-T1: No focal disc herniation or significant disc bulge is evident. No spinal canal stenosis or n eural foraminal stenosis is present. C6-7: There is a broad base right paracentral disc bulge with mild to moderate anterior thecal sac co mpression. No cord contact is evident no spinal canal stenosis present. Mild right foraminal narrowin g is present.. C5-6: Mild disc bulge is present with anterior thecal sac contact. No AP spinal canal stenosis is pre sent. Neural foramen are patent.. C4-5: Mild disc bulge is present in a mildly greater into the left paracentral region. No AP spinal c anal stenosis is present. Neural foramen are patent.. C3-4: No focal disc herniation or significant disc bulge is evident. No spinal canal stenosis or iris ral foraminal stenosis is present. C2-3: No focal disc herniation or significant disc bulge is evident. No spinal canal stenosis or iris ral foraminal stenosis is present. IMPRESSION: 1. Moderate size Right paracentral disc bulge C6-7 without cord contact. Some right foraminal narrowi ng is present. 2. Minimal to mild disc bulging also present C5-6, C4-5 without cord contact or spinal canal stenosis .
== END | disposition home or self-care (01) ==
LOC: RADMRIMAIN 05:22
PROVIDERS: ATTEND Neurological Surgery
DX: M50.321 Other cervical disc degeneration at C4-C5 level (principal); M47.812 Spondylosis without myelopathy or radiculopathy, cervical region
CPT/HCPCS: 72141